=== PATIENT | male | born 1940 | race Caucasian/White ===

== ENCOUNTER → 2016-12-09 | Outpatient (CLI) | payer OTHER ==
[~2016-12-09] MED LIST: ALLO300T2 PO; ASPEC325 PO; CHOL100027 PO; DICL-201 PO; DICL1SOL6; LISI2.5T5 PO; OMEG10007 PO; ROSU5TAB PO; SITA50TA5 PO; ZNTT/150 PO; fiber PO
[2016-12-09 10:18] LABS: ALB/GLOB RATIO 1.1 (0.9-2); AST/SGOT 10 U/L (15-37); BLOOD UREA NITROGEN 21 mg/dl (7-18); BUN/CREATININE RATIO 17.7 (10-20); CALCIUM 9.3 mg/dl (8.5-10.1); CARBON DIOXIDE 30 mmol/L (21-32); CHLORIDE 101 mmol/L (98-107); GLUCOSE 271 mg/dl (70-99); POTASSIUM 4.4 mmol/L (3.5-5.1); SODIUM 140 mmol/L (136-145)
[2016-12-09 10:23] LABS: ALKALINE PHOSPHATASE 69 U/L (45-117); ALT/SGPT 29 U/L (12-78)
[2016-12-09 10:24] LABS: ESTIMATED AVERAGE GLUCOSE 220 mg/dl; HA1C FLAG Normal (Normal)
[2016-12-09 11:54] LABS: RATIO 9.1 mcg/mg (0-30.0)
== END | disposition home or self-care (01) ==
LOC: C.LAB 08:50
PROVIDERS: ATTEND Internal Medicine
DX: E11.65 Type 2 diabetes mellitus with hyperglycemia (principal); C61 Malignant neoplasm of prostate; I10 Essential (primary) hypertension

== ENCOUNTER → 2017-01-22 | Outpatient (CLI) | payer OTHER | END | disposition home or self-care (01) | LOC: C.LAB 17:21 | PROVIDERS: ATTEND Urology | DX: C61 Malignant neoplasm of prostate (principal) ==

== ENCOUNTER → 2017-03-07 | Outpatient (CLI) | payer OTHER ==
[~2017-03-07] MED LIST changes: +CALC625T13 PO; -DICL1SOL6; +DICL1SOL6 TOP; +LISI-729 PO; +ONDA4TAB10 SL
[2017-03-07 12:51] LABS: ESTIMATED AVERAGE GLUCOSE 183 mg/dl; HA1C FLAG Normal (Normal)
== END | disposition home or self-care (01) ==
LOC: C.LAB 09:52
PROVIDERS: ATTEND Internal Medicine
DX: E11.65 Type 2 diabetes mellitus with hyperglycemia (principal)

== ENCOUNTER → 2017-07-15 | Outpatient (CLI) | payer OTHER ==
[~2017-07-15] MED LIST changes: -CALC625T13 PO; +DICL1SOL6; -DICL1SOL6 TOP; -LISI-729 PO; -ONDA4TAB10 SL
[2017-07-15 10:24] LABS: ESTIMATED AVERAGE GLUCOSE 171 mg/dl; HA1C FLAG Normal (Normal)
[2017-07-15 13:27] LABS: ALT/SGPT 31 U/L (12-78); AST/SGOT 16 U/L (15-37); BLOOD UREA NITROGEN 16 mg/dl (7-18); BUN/CREATININE RATIO 16.7 (10-20); CALCIUM 9.3 mg/dl (8.5-10.1); CARBON DIOXIDE 28 mmol/L (21-32); CHLORIDE 105 mmol/L (98-107); CREATININE 0.97 mg/dl (0.60-1.40); GLUCOSE 161 mg/dl (70-99); POTASSIUM 4.3 mmol/L (3.5-5.1); SODIUM 139 mmol/L (136-145); URIC ACID 3.2 mg/dl (2.6-7.2)
[2017-07-15 13:30] LABS: ALB/GLOB RATIO 1.1 (0.9-2); ALKALINE PHOSPHATASE 68 U/L (45-117); CHOLESTEROL 154 mg/dl (0-200); CHOLESTEROL/HDL RATIO 4.3; HDL CHOLESTEROL 36 mg/dl; LDL CHOLESTEROL CALCULATED 71 mg/dl; TRIGLYCERIDES 235 mg/dl (0-150); VERY LOW DENSITY LIPOPROT CALC 47 mg/dl
== END | disposition home or self-care (01) ==
LOC: C.LAB 09:22
PROVIDERS: ATTEND Internal Medicine
DX: E78.5 Hyperlipidemia, unspecified (principal); E11.65 Type 2 diabetes mellitus with hyperglycemia; E79.0 Hyperuricemia without signs of inflammatory arthritis and tophaceous disease; I10 Essential (primary) hypertension

== ENCOUNTER → 2017-07-28 | Outpatient (CLI) | payer OTHER | END | disposition home or self-care (01) | LOC: C.LAB 11:55 | PROVIDERS: ATTEND Internal Medicine | DX: C61 Malignant neoplasm of prostate (principal) ==

== ENCOUNTER 2017-08-31 19:24 | Emergency (ER) | payer OTHER ==
[~2017-08-31] VITALS: Ht 177.8 cm; Wt 87.3 kg
[~2017-08-31 19:24] MED LIST changes: -DICL1SOL6; +DICL1SOL6 TOP
[2017-08-31 19:41] VITALS: TEMP 36.9; Ht 177.8 cm; Wt 87.3 kg
[2017-08-31] MEDS ORDERED: ONDANSETRON INJ 2 MG/ML 2 ML VIAL IV STA (20:42)
[2017-08-31] MEDS ORDERED: SODIUM CHLORIDE 0.9% 1000ML 1,000 ML IV STA (20:42)
--- NOTE | 2017-08-31 20:47 | EMERGENCY ROOM VISIT NOTE ---
History Report prepared by Richardson: Ale Echevarria Under the Supervision of: Dr. David Davidson M.D. First contact with patient: 20:20 Chief Complaint: VOMITING Stated Complaint: NAUSEA, VOMITING Nursing Triage Summary: vomiting and nausea x 2 hrs. History of Present Illness The patient is a 76 year old male who presents to the Emergency Room with complaints of constant nausea and vomiting beginning 2 hours ago. He denies any fever, chills, or abdominal pain. The patient has had about 6 episodes of vomiting today. The patient notes taking an amoxicillin that he had "laying around" at 4 pm prior to a dental procedure. He states that he had a hip replacement a year ago and was told to by his orthopedic surgeon to take an amoxicillin before he had any dental procedures. The patient has a history of appendectomy and diabetes. Source of History: patient Onset: 2 hours ago Position: other (generalized) Quality: other (nausea) Associated Symptoms: + nausea, + vomiting, No fevers, No chills, No abdominal pain Review of Systems See HPI for pertinent positives and negatives. A total of ten systems were reviewed and were otherwise negative. Past Medical & Surgical Medical Problems: (1) Diabetes (2) Left Hip DJD Family History Diabetes mellitus Kidney disease Kidney stones Social History Smoking Status: Never Smoker Alcohol Use: none Marital Status: Housing Status: lives with family Occupation Status: employed Current/Historical Medications Scheduled Allopurinol (Zyloprim), 300 MG PO QAM Calcium Polycarbophil (Fiber Tabs), 625 MG PO BID Cholecalciferol (Vitamin D 1000 Unit), 1,000 INTER.UNIT PO BID Diclofenac (Voltaren), 75 MG PO DAILY Lisinopril (Zestril), 2.5 MG PO DAILY Ondasetron Odt (Zofran Odt), 4 MG SL Q6H Ranitidine (Zantac), 150 MG PO HS Rosuvastatin Calcium (Crestor), 10 MG PO Q2D Sitagliptin-Metformin Hcl (Janumet), 1 TAB PO BID Scheduled PRN Diclofenac Sodium (Topical) (Pennsaid), 1 APPLN TOP BID PRN for Pain Allergies Coded Allergies: Iodine (Verified Allergy, Severe, ANAPHYLAXIS, 05/12/16) "Possible rxn" Shellfish (Verified Allergy, Severe, ANAPHYLAXIS, 05/12/16) Prednisone (Verified Adverse Reaction, Mild, raises blood sugar, 05/12/16) Insulin (Verified Adverse Reaction, Unknown, 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 Oropharynx unremarkable. Dry MM. EYES: Normal conjunctiva. Sclera non-icteric. NECK: Supple. No nuchal rigidity. FROM. No JVD. RESPIRATORY: Clear to auscultation. CARDIAC: Regular rate, normal rhythm. Extremities warm and well perfused. Pulses equal. ABDOMEN: Soft, non-distended. No tenderness to palpation. No rebound or guarding. No masses. RECTAL: Deferred. MUSCULOSKELETAL: Chest examination reveals no tenderness. The back is symmetrical on inspection without obvious abnormality. There is no CVA tenderness to palpation. No joint edema. LOWER EXTREMITIES: Calves are equal size bilaterally and non-tender. No edema. No discoloration. NEURO: Normal sensorium. No sensory or motor deficits noted. SKIN: No rash or jaundice noted. Medical Decision & Procedures ER Provider Diagnostic Interpretation: Radiology results as stated below per my review and radiologist interpretation: CHEST ONE VIEW PORTABLE FINDINGS: The heart is normal in size. There is no failure. There is no focal pulmonary consolidation. There are no pleural effusions. There is a retrocardiac opacity consistent with a hiatal hernia. There is no free intraperitoneal air.[ IMPRESSION: No active disease in the chest. Electronically signed by: Broderick Wilder M.D. Laboratory Results 08/31/17 20:16 Red Blood Count 4.83, Mean Corpuscular Volume 95.7, Mean Corpuscular Hemoglobin 32.5, Mean Corpuscular Hemoglobin Concent 34.0, Mean Platelet Volume 11.1, Neutrophils (%) (Auto) 87.7, Lymphocytes (%) (Auto) 5.2, Monocytes (%) (Auto) 5.8, Eosinophils (%) (Auto) 0.5, Basophils (%) (Auto) 0.2, Neutrophils # (Auto) 11.03, Lymphocytes # (Auto) 0.65, Monocytes # (Auto) 0.73, Eosinophils # (Auto) 0.06, Basophils # (Auto) 0.02 08/31/17 20:16 Test 08/31/17 20:16 White Blood Count 12.57 K/uL (4.8-10.8) Red Blood Count 4.83 M/uL (4.7-6.1) Hemoglobin 15.7 g/dL (14.0-18.0) Hematocrit 46.2 % (42-52) Mean Corpuscular Volume 95.7 fL (80-100) Mean Corpuscular Hemoglobin 32.5 pg (25-34) Mean Corpuscular Hemoglobin Concent 34.0 g/dl (32-36) Platelet Count 187 K/uL (130-400) Mean Platelet Volume 11.1 fL (7.4-10.4) Neutrophils (%) (Auto) 87.7 % Lymphocytes (%) (Auto) 5.2 % Monocytes (%) (Auto) 5.8 % Eosinophils (%) (Auto) 0.5 % Basophils (%) (Auto) 0.2 % Neutrophils # (Auto) 11.03 K/uL (1.4-6.5) Lymphocytes # (Auto) 0.65 K/uL (1.2-3.4) Monocytes # (Auto) 0.73 K/uL (0.11-0.59) Eosinophils # (Auto) 0.06 K/uL (0-0.5) Basophils # (Auto) 0.02 K/uL (0-0.2) RDW Standard Deviation 44.8 fL (36.4-46.3) RDW Coefficient of Variation 12.8 % (11.5-14.5) Immature Granulocyte % (Auto) 0.6 % Immature Granulocyte # (Auto) 0.08 K/uL (0.00-0.02) Anion Gap 10.0 mmol/L (3-11) Est Creatinine Clear Calc Drug Dose 63.4 ml/min Estimated GFR () 81.0 Estimated GFR (Non- 69.9 BUN/Creatinine Ratio 19.7 (10-20) Calcium Level 9.3 mg/dl (8.5-10.1) Total Bilirubin 0.5 mg/dl (0.2-1) Direct Bilirubin 0.1 mg/dl (0-0.2) Aspartate Amino Transf (AST/SGOT) 16 U/L (15-37) Alanine Aminotransferase (ALT/SGPT) 30 U/L (12-78) Alkaline Phosphatase 79 U/L (45-117) Troponin I < 0.015 ng/ml (0-0.045) Total Protein 7.4 gm/dl (6.4-8.2) Albumin 4.0 gm/dl (3.4-5.0) Lipase 411 U/L (73-393) Laboratory results reviewed by me Medications Administered Medications (Trade) Dose Ordered Sig/Yun Route Start Time Stop Time Status Last Admin Dose Admin Sodium Chloride 1,000 ml @ 999 mls/hr Q1H1M STAT IV 08/31/17 20:42 08/31/17 21:42 DC 08/31/17 20:54 999 MLS/HR Ondansetron HCl (Zofran Inj) 4 mg NOW STAT IV 08/31/17 20:42 08/31/17 20:44 DC 08/31/17 20:54 4 MG Ondansetron HCl (ZOFRAN ODT 4MG Home Pack) 1 homepack STK-MED ONCE .ROUTE 08/31/17 21:51 08/31/17 21:52 DC 08/31/17 21:57 1 HOMEPACK ECG Indication: nausea Rate (beats per minute): 88 Rhythm: normal sinus Findings: RBBB (incomplete), no acute ischemic change, other (normal axis) Comparison ECG Date: 04/04/16 Change: no significant change ED Course 2036: The patient was evaluated in room C12B. A complete history and physical exam was performed. 2041: Zofran Inj 4 mg IV, Sodium Chloride 1000 ml @ 999 mls/hr IV. 2129: I reassessed the patient and he states that he is feeling better. 2150: Zofran ODT 4 mg Homepack 1 homepack .ROUTE. 2154: I reevaluated the patient. Discussed results and discharge instructions: He verbalized understanding and agreement. The patient is ready for discharge. Medical Decision I reviewed the patient's past medical history, medications, and the nursing notes as described above. Differential diagnoses: gastritis, gastroenteritis, ACS, pneumonia, bronchitis, dissection. The patient is a 76-year-old gentleman who presents emergency Department with nausea and vomiting that started around 5 PM prior to arrival. History of present illness. While the patient is relatively well-appearing in no acute distress, afebrile with stable vital signs. He did not shortly after arrival that he had to have a bowel movement and had a small episode of diarrhea. Symptoms occurred in the setting of taking independently a dose of Augmentin for a dental cleaning tomorrow in the setting of his left hip replacement. Labs unremarkable including a negative troponin. X-ray negative. EKG with incomplete right bundle-branch block not significantly changed from prior and with no signs of acute ischemia. Given the combination of nausea and vomiting with diarrhea, ACS is unlikely and gastroenteritis is more likely. Denies CP or abd pain and equal pulses thus dissection not likely. Patient feeling improved after IV fluids and Zofran. Agreeable for discharge. Findings and plan for follow-up reviewed patient. Patient agreeable and d/c'd per discharge instructions. Medication Reconcilliation Current Medication List: was personally reviewed by me Blood Pressure Screening Patient's blood pressure: Elevated blood pressure Blood pressure disposition: Elevated BP felt to be situational Impression Primary Impression: Nausea, vomiting, and diarrhea Additional Impression: Gastroenteritis Scribe Attestation The scribe's documentation has been prepared under my direction and personally reviewed by me in its entirety. I confirm that the note above accurately reflects all work, treatment, procedures, and medical decision making performed by me. Departure Information Dispostion Home / Self-Care Prescriptions Ondasetron Odt (ZOFRAN ODT) 4 Mg Tab 4 MG SL Q6H for Nausea, #6 TAB Prov: David Davidson M.D. 08/31/17 Referrals Lilly Bonds M.D. (PCP) Forms HOME CARE DOCUMENTATION FORM, IMPORTANT VISIT INFORMATION Patient Instructions ED Food Poison Or Gastroenteritis, My [facility] Additional Instructions Please follow up with your primary care physician in the next 1-3 days for re- evaluation. Your symptoms may have been due to your antibiotic or a viral infection. Otherwise, your exam, EKG, chest xray, and lab results did not show signs of an emergent condition at this time. Zofran as needed for nausea. Drink plenty of fluids to ensure hydration. Return to the emergency department for worsening symptoms as described in the accompanying instructions. Problem Qualifiers
[2017-08-31 20:49] LABS: BASO % 0.2 %; BASO ABS # 0.02 K/uL (0-0.2); COMPLETE YES; EOS % 0.5 %; HEMATOCRIT 46.2 % (42-52); IG% 0.6 %; LYMPH % 5.2 %; LYMPH ABS # 0.65 K/uL (1.2-3.4); MEAN CELL VOLUME 95.7 fL (80-100); MEAN CORPUSCULAR HEMOGLOBIN 32.5 pg (25-34); MEAN PLATELET VOLUME 11.1 fL (7.4-10.4); MONO % 5.8 %; NEUT % 87.7 %; PLATELET COUNT 187 K/uL (130-400); RED BLOOD COUNT 4.83 M/uL (4.7-6.1); WHITE BLOOD COUNT 12.57 K/uL (4.8-10.8)
[2017-08-31 20:57] LABS: ALT/SGPT 30 U/L (12-78); AST/SGOT 16 U/L (15-37); BLOOD UREA NITROGEN 21 mg/dl (7-18); BUN/CREATININE RATIO 19.7 (10-20); CALCIUM 9.3 mg/dl (8.5-10.1); CARBON DIOXIDE 24 mmol/L (21-32); CHLORIDE 105 mmol/L (98-107); CREATININE 1.04 mg/dl (0.60-1.40); GLUCOSE 198 mg/dl (70-99); POTASSIUM 4.2 mmol/L (3.5-5.1); SODIUM 139 mmol/L (136-145)
[2017-08-31 21:02] LABS: ALKALINE PHOSPHATASE 79 U/L (45-117)
--- NOTE | 2017-08-31 21:04 | DIAGNOSTIC IMAGING REPORT ---
CHEST ONE VIEW PORTABLE CLINICAL HISTORY: Pain, radiating to the abdomen, nausea, vomiting. COMPARISON STUDY: 04/04/2016 FINDINGS: The heart is normal in size. There is no failure. There is no focal pulmonary consolidation. There are no pleural effusions. There is a retrocardiac opacity consistent with a hiatal hernia. There is no free intraperitoneal air.[ IMPRESSION: No active disease in the chest. Electronically signed by: Broderick Wilder M.D. 08/31/2017 9:02 PM Dictated Date/Time: 08/31/2017 9:02 PM
[2017-08-31 21:35] VITALS: BP 126/61; PULSE 90; O2SAT 96
[2017-08-31] MEDS ORDERED: ONDA4TAB10 SL (21:41)
[2017-08-31] MEDS ORDERED: ONDANSETRON HOME PACK 4MG OD TAB ONE (21:51)
[2017-08-31] MEDS ORDERED: LISI-729 PO (21:53)
[2017-08-31] MEDS ORDERED: CALC625T13 PO (21:53)
== END 2017-08-31 21:59 | disposition home or self-care (01) ==
LOC: C.EDB 19:24 → C.EDC 21:59
DX: R11.2 Nausea with vomiting, unspecified (principal); R19.7 Diarrhea, unspecified; K52.9 Noninfective gastroenteritis and colitis, unspecified; E11.9 Type 2 diabetes mellitus without complications; Z83.3 Family history of diabetes mellitus

== ENCOUNTER → 2017-11-24 | Outpatient (CLI) | payer OTHER ==
[~2017-11-24] MED LIST changes: -ASPEC325 PO; +CALC625T13 PO; +LISI-729 PO; -LISI2.5T5 PO; -OMEG10007 PO; +ONDA4TAB10 SL; -fiber PO
[2017-11-24 10:10] LABS: HEMOGLOBIN A1C 7.8 % (4.5-5.6)
[2017-11-24 10:37] LABS: ALBUMIN 3.9 gm/dl (3.4-5.0); ALKALINE PHOSPHATASE 84 U/L (45-117); ALT/SGPT 41 U/L (12-78); AST/SGOT 24 U/L (15-37); BLOOD UREA NITROGEN 19 mg/dl (7-18); CALCIUM 9.7 mg/dl (8.5-10.1); CARBON DIOXIDE 27 mmol/L (21-32); CHOLESTEROL 186 mg/dl (0-200); CREATININE 0.99 mg/dl (0.60-1.40); GLUCOSE 164 mg/dl (70-99); POTASSIUM 4.3 mmol/L (3.5-5.1); SODIUM 136 mmol/L (136-145); TOTAL PROTEIN 7.3 gm/dl (6.4-8.2)
== END | disposition home or self-care (01) ==
LOC: C.LAB 08:57
PROVIDERS: ATTEND Internal Medicine
DX: E11.9 Type 2 diabetes mellitus without complications (principal); I10 Essential (primary) hypertension; E78.5 Hyperlipidemia, unspecified

== ENCOUNTER 2017-12-08 21:26 | Emergency (ER) | payer OTHER ==
[~2017-12-08] VITALS: Ht 177.8 cm; Wt 86.4 kg
[2017-12-08 21:42] VITALS: Ht 177.8 cm; Wt 86.4 kg
[2017-12-08] MEDS ORDERED: ACETAMINOPHEN 500 MG TAB PO STA (22:06)
[2017-12-08 22:55] LABS: INFLUENZA B ANTIGEN Neg for Influ B (NEG)
[2017-12-08] MEDS ORDERED: OSELTAMIVIR PHOSPHATE 75 MG CAP PO STA (23:20)
[2017-12-08] MEDS ORDERED: ALBUTEROL HFA 8 GM INHALER INH ONE (23:30)
[2017-12-09] MEDS ORDERED: ASPI81TA28 PO (00:30)
[2017-12-09] MEDS ORDERED: OSEL75CA12 PO (00:43)
[2017-12-09 01:11] VITALS: BP 129/70; PULSE 78; TEMP 37.3; O2SAT 93
--- NOTE | 2017-12-09 03:52 | EMERGENCY ROOM VISIT NOTE ---
History Report prepared by Richardson: Mingo Ernst Under the Supervision of: Dr. Cale Connors M.D. First contact with patient: 22:38 Chief Complaint: FEVER Stated Complaint: EXTREME FATIGUE,FEVER,SINUS History of Present Illness The patient is a 77 year old male who presents to the Emergency Room with complaints of a constant fever that began today. The patient states that he started to develop cold symptoms, including sinus drainage, fatigue, and sneezing. He states that today he started to experience a fever today. He states that he has been urinating more frequently because he has been pushing fluids. The patient reports that he took 200 mg of Ibuprofen this morning for his symptoms without any relief. He states that he had "nearly collapsed" today after getting out of his unpressurized cabin after flying from [place] to [place] today. The patient states that he had to fly higher than normal today. He states that he was not dizzy or lightheaded prior to falling. The patient denies any syncope or hitting his head. The patient denies LOC, headache , diaphoresis, visual changes, neck pain, chest pain, breathing difficulties, nausea, vomiting, abdominal pain, back pain, melena, hematochezia, numbness, weakness, lymphadenopathy, rash, or other complaints. Source of History: patient Onset: today Position: other (global) Quality: other (global) Timing: constant Modifying Factors (Relieving): ibuprofen Associated Symptoms: + urinary symptoms, + fatigue Review of Systems See HPI for pertinent positives and negatives. A total of ten systems were reviewed and were otherwise negative. Past Medical & Surgical Medical Problems: (1) Diabetes (2) Left Hip DJD Family History Diabetes mellitus Kidney disease Kidney stones Social History Smoking Status: Never Smoker Alcohol Use: none Marital Status: Housing Status: lives with family Occupation Status: employed Current/Historical Medications Scheduled Allopurinol (Zyloprim), 300 MG PO QAM Aspirin (Aspirin Ec), 81 MG PO DAILY Calcium Polycarbophil (Fiber Tabs), 625 MG PO BID Cholecalciferol (Vitamin D 1000 Unit), 1,000 INTER.UNIT PO BID Diclofenac (Voltaren), 75 MG PO DAILY Lisinopril (Zestril), 2.5 MG PO DAILY Oseltamivir (Tamiflu), 75 MG PO BID Ranitidine (Zantac), 150 MG PO HS Rosuvastatin Calcium (Crestor), 10 MG PO Q2D Sitagliptin-Metformin Hcl (Janumet), 1 TAB PO BID Scheduled PRN Diclofenac Sodium (Topical) (Pennsaid), 1 APPLN TOP BID PRN for Pain Allergies Coded Allergies: Iodine (Verified Allergy, Severe, ANAPHYLAXIS, 12/09/17) "Possible rxn" Shellfish (Verified Allergy, Severe, ANAPHYLAXIS, 12/09/17) Prednisone (Verified Adverse Reaction, Mild, raises blood sugar, 12/09/17) Insulin (Verified Adverse Reaction, Unknown, 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 No edema. EYES: Normal conjunctiva. Sclera non-icteric. EARS: Right TM normal. Left TM normal. NOSE: Mild congestion. OROPHARYNX: Lips, tongue, and mucosa unremarkable. No erythema or exudate. NECK: Supple. No nuchal rigidity. FROM. No adenopathy. Negative jolt accentuation test. RESPIRATORY: CTA bilaterally. No wheezes rales or rhonchi. CARDIAC: Borderline tachycardic rate, normal rhythm. ABDOMEN: Soft, non distended. No tenderness to palpation. NEURO: Normal sensorium. SKIN: No rash or jaundice noted Medical Decision & Procedures ER Provider Diagnostic Interpretation: X-ray: Per my interpretation and review. Chest x-ray. Findings: A chest x-ray was performed and revealed no pneumothorax , effusion, infiltrate, pulmonary edema, free air under the diaphragm, or wide mediastinum. Laboratory Results Test 12/08/17 21:45 12/08/17 22:10 Bedside Glucose 249 mg/dl (70-99) Influenza Type A Antigen POS for Influ A (NEG) Influenza Type B Antigen Neg for Influ B (NEG) Laboratory results reviewed by me Medications Administered Medications (Trade) Dose Ordered Sig/Yun Route Start Time Stop Time Status Last Admin Dose Admin Acetaminophen (Tylenol Tab) 1,000 mg NOW STAT PO 12/08/17 22:06 12/08/17 22:08 DC 12/08/17 22:12 1,000 MG Oseltamivir Phosphate (Tamiflu Cap) 75 mg NOW STAT PO 12/08/17 23:20 12/08/17 23:21 DC 12/08/17 23:39 75 MG Albuterol (Ventolin Hfa Inhaler) 2 puffs NOW ONCE INH 12/08/17 23:30 12/08/17 23:31 DC 12/08/17 23:30 2 PUFFS ED Course 2311: The patient was evaluated in room C10. A complete history and physical exam was performed. 2205: Ordered Tylenol Tab 1000 mg PO. 0: Ordered Tamiflu Cap 75 mg PO. 2330: Ordered Albuterol 2 puffs INH. 0048: I reevaluated the patient. Discussed results and discharge instructions: He verbalized understanding and agreement. The patient is ready for discharge. Medical Decision Prior records/ancillary studies reviewed. Triage Nursing notes reviewed and agree them. Additional history obtained from his . The patient's history was concerning for flulike symptoms. Differential diagnosis: Etiologies such as influenza,otitis, sinusitis, pneumonia,meningitis, urinary tract infection, sepsis, bacteremia, viral syndrome, as well as others were entertained. Physical examination: As above. Non-toxic. No hypoxia. Benign abdomen. Clear chest. ER treatment provided: Oral Tylenol Tamiflu Albuterol MDI On reassessment the patient felt better. Diagnostics interpreted by me: The labs revealed a positive flu. Imaging studies: Chest x-ray as above The patient has influenza. This would fit his symptom pathology. I discussed treatment with Tamiflu as his symptoms and present for just a short time. He was in agreement. Conservative management with an albuterol MDI, Tylenol, and sparing doses of ibuprofen were instructed. Close outpatient follow-up was recommended. If he worsens in any way he was instructed to come back. I did instruct his to contact her primary physician regarding her exposure to influenza. By the evaluation outlined above emergent etiologies such as otitis, pharyngitis, pneumonia, meningitis, urinary tract infection, sepsis, bacteremia , as well as others were deemed relatively unlikely. The patient and were informed about the findings as listed above. All questions were answered and they were pleased with the treatment. Return instructions were outlined and the patient was discharged in stable condition. Outpatient prescription management: Tamiflu Albuterol MDI Referral: The patient was referred back to his primary care physician for follow-up in 2 to 3 days for a recheck of the current condition. Medication Reconcilliation Current Medication List: was personally reviewed by me Blood Pressure Screening Patient's blood pressure: Normal blood pressure Impression Primary Impression: Influenza Scribe Attestation The scribe's documentation has been prepared under my direction and personally reviewed by me in its entirety. I confirm that the note above accurately reflects all work, treatment, procedures, and medical decision making performed by me. Departure Information Dispostion Home / Self-Care Prescriptions Oseltamivir (Tamiflu) 75 Mg Cap 75 MG PO BID, #9 CAP Prov: Cale Connors MD 12/09/17 Referrals Lilly Bonds M.D. (PCP) Doron Stephen D.OMarcia Patient Instructions My [facility] Additional Instructions Tamiflu 75 mg twice daily for 10 doses total for the flu. Acetaminophen(Tylenol) may be used for fever or pain. Use 1000mg every six hours as needed. Avoid using more than 4000mg in a 24 hour period. (AND/OR) Ibuprofen(Motrin, Advil) may be used for fever or pain. Use 600mg every six hours as needed. Take with food. Avoid using more than 2400mg in a 24 hour period. Do not use 2400mg per day for more than three consecutive days without physician direction. Prolonged inappropriate use can lead to stomach upset or ulcers. Albuterol Inhaler: Take 2 puffs four times daily for seven days, then as needed. Rest and drink plenty of fluids. Controlling your fever with Tylenol and Ibuprofen as above will make you feel better. Wash your hands after nose blowing, sneezing, or coughing. Most germs are spread through contact, therefore improper hygiene may result in your close contacts and loved ones becoming ill just like you. Return to the ER for severe headache, neck stiffness, chest pain, difficulty breathing, fevers, vomiting, worsening of your condition, or as needed. Follow up with your primary physician this week for a recheck of your current condition.
--- NOTE | 2017-12-09 07:17 | DIAGNOSTIC IMAGING REPORT ---
CHEST ONE VIEW PORTABLE CLINICAL HISTORY: 77 years-old Male presenting with flu. TECHNIQUE: Portable upright AP view of the chest was obtained. COMPARISON: 08/31/2017. FINDINGS: Atherosclerosis of the aortic arch. Cardiac silhouette normal in size. Lungs and pleural spaces clear. Degenerative changes of the thoracic spine. Retrocardiac density may relate to a hiatal hernia. IMPRESSION: 1. No acute cardiopulmonary disease. Electronically signed by: Nirmal Sierra M.D. 12/09/2017 7:16 AM Dictated Date/Time: 12/09/2017 7:15 AM
== END 2017-12-09 01:14 | disposition home or self-care (01) ==
LOC: C.EDB 21:27 → C.EDC 12-09 01:14
DX: J11.1 Influenza due to unidentified influenza virus with other respiratory manifestations (principal); E11.9 Type 2 diabetes mellitus without complications; M16.12 Unilateral primary osteoarthritis, left hip; Z83.3 Family history of diabetes mellitus; Z84.1 Family history of disorders of kidney and ureter; Z79.82 Long term (current) use of aspirin; Z79.899 Other long term (current) drug therapy

== ENCOUNTER → 2018-02-16 | Outpatient (CLI) | payer OTHER ==
[~2018-02-16] MED LIST changes: +ASPI81TA28 PO; -ONDA4TAB10 SL; +OSEL75CA12 PO; +RANI150T85 PO; -ZNTT/150 PO
== END | disposition home or self-care (01) ==
LOC: C.LAB 10:27
PROVIDERS: ATTEND Urology
DX: C61 Malignant neoplasm of prostate (principal)

== ENCOUNTER → 2018-06-22 | Outpatient (CLI) | payer OTHER ==
[~2018-06-22] MED LIST changes: -OSEL75CA12 PO
--- NOTE | 2018-06-22 18:43 | DIAGNOSTIC IMAGING REPORT ---
L HIP UNILATERAL 2 VIEWS CLINICAL HISTORY: Left hip pain. No trauma. COMPARISON: Left hip radiographs February 01, 2016 and May 07, 2016. FINDINGS: Alignment of the total left hip arthroplasty is anatomic. There is no periprosthetic fracture or lucency. No suspicious osseous lesion is present. IMPRESSION: Status post total left hip arthroplasty. No periprosthetic fracture or lucency. Electronically signed by: Shree Schulte M.D. 06/22/2018 6:42 PM Dictated Date/Time: 06/22/2018 6:36 PM
== END | disposition home or self-care (01) ==
LOC: C.RAD 18:21
PROVIDERS: ATTEND Internal Medicine
DX: M25.552 Pain in left hip (principal); Z96.642 Presence of left artificial hip joint

== ENCOUNTER 2021-09-19 06:39 | Observation (INO) ==
--- NOTE | 2021-06-14 14:04 | PAT Medication Instructions ---
Medication Instructions Date of Service June 14, 2021 Home Medications allopurinol 300 mg tablet 300 mg PO QAM cholecalciferol (vitamin D3) 50 mcg (2,000 unit) tablet 2,000 mcg PO QAM diclofenac sodium 75 mg tablet,delayed release 75 mg PO BID rosuvastatin 5 mg tablet 20 mg PO 3XWK sitagliptin 50 mg-metformin ER 1,000 mg tablet,extended release 24h mp 1 tab PO BID poby-pht-epeve-wxhcrysne-aojlrvwx-rulo-pectin 1,000 mg tablet (Fiber 6) 1 tab PO BID diclofenac sodium 1 % topical gel 2 g TOPICAL BID lisinopril 2.5 mg tablet 2.5 mg PO 3XWK pioglitazone 45 mg tablet 45 mg PO QAM Continue as directed rosuvastatin 5 mg tablet 20 mg PO 3XWK ASK your surgeon for instructions diclofenac sodium 75 mg tablet,delayed release 75 mg PO BID STOP taking 24 hours before surgery diclofenac sodium 1 % topical gel 2 g TOPICAL BID DO NOT take the morning of surgery cholecalciferol (vitamin D3) 50 mcg (2,000 unit) tablet 2,000 mcg PO QAM sitagliptin 50 mg-metformin ER 1,000 mg tablet,extended release 24h mp 1 tab PO BID tcgc-brh-jjyam-psftospny-xfsvmvhy-yugp-pectin 1,000 mg tablet (Fiber 6) 1 tab PO BID lisinopril 2.5 mg tablet 2.5 mg PO 3XWK pioglitazone 45 mg tablet 45 mg PO QAM Take morning of surgery With a small sip of water, OTHERWISE NOTHING TO EAT OR DRINK AFTER MIDNIGHT: allopurinol 300 mg tablet 300 mg PO QAM Take evening before surgery sitagliptin 50 mg-metformin ER 1,000 mg tablet,extended release 24h mp 1 tab PO BID tdwc-iwh-ndoyz-emeiihzge-gtapzpdp-vugi-pectin 1,000 mg tablet (Fiber 6) 1 tab PO BID Other Notes If you have any questions please call us at [phone] or [phone] or [phone] or [phone]
--- NOTE | 2021-06-15 08:50 | Anesthesiology Consultation ---
Date of Service June 15, 2021 Assessment & Plan (1) Encounter for pre-operative examination: - COVID screening: Per assessment on 06/15: Travel screen- Patient will be doing daytrip to [facility] for 's doctor appt via car 06/19. Return from travel will be > 5 days prior to preop COVID testing. Patient vaccinated. No known COVID-19 positive contacts or current COVID-19 related symptoms. Surgeon arranging preop COVID testing (scheduled 06/28; [place]). Awaiting results. - S/P Left RYAN (05/07/16): SAB x1 attempt at [facility] - Check BSG AM DOS - Elevated hgba1c at 9.8% on preop labs. 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 Katharine at surgeon's office reviewed with Dr. Coburn. She states they will be forwarding results to PCP and arranging preop PCP evaluation. Chart Review Chart Review: Acceptable Risk for Surgery (pending surgeon-ordered PCP clear ance) and Patient seen in Pre Admission Testing Teaching & Discussion Pre-Anesthesia Teaching/Discussion Notes: Instructed NPO after midnight before surgery,except medications with 15 cc of water. Medication instructions provided according to the PAT guidelines. History Surgery Operation Date: 07/02/21 09:10 Proposed Procedures p Right Total Hip Arthroplasty - Romain Coburn MD Height/Weight Height: 5 ft 10 in Weight: 94.9 kg Allergies Allergy/AdvReac Type Severity Reaction Status Date / Time iodine Allergy Severe Anaphylaxis Verified 06/14/21 10:19 shellfish derived Allergy Severe Anaphylaxis Verified 06/14/21 10:19 prednisone AdvReac Mild Elevates Verified 06/14/21 10:19 blood sugar Insulins AdvReac Unknown Pt does Verified 06/14/21 10:19 not want (would revoke [employer]er [employer]'s license) Medications Home Medications Medication Instructions Recorded Confirmed Last Taken allopurinol 300 mg tablet 300 mg PO QAM 09/19/20 06/14/21 Unknown cholecalciferol (vitamin D3) 50 2,000 mcg PO QAM 09/19/20 06/14/21 Unknown mcg (2,000 unit) tablet diclofenac sodium 75 mg 75 mg PO BID 09/19/20 06/14/21 Unknown tablet,delayed release rosuvastatin 5 mg tablet 20 mg PO 3XWK 09/19/20 06/14/21 Unknown sitagliptin 50 mg-metformin ER 1 tab PO BID 09/19/20 06/14/21 Unknown 1,000 mg tablet,extended release 24h mp sdfw-vot-zvdde-klrdbosvm-jllertag-zosz-pectin 1 tab PO BID 06/14/21 06/14/21 Unknown 1,000 mg tablet (Fiber 6) diclofenac sodium 1 % topical gel 2 g TOPICAL BID 06/14/21 06/14/21 Unknown lisinopril 2.5 mg tablet 2.5 mg PO 3XWK 06/14/21 06/14/21 Unknown pioglitazone 45 mg tablet 45 mg PO QAM 06/14/21 06/14/21 Unknown Past Medical History Medical History Arthritis Cancer Urethral (several years ago) Diabetes Hyperlipidemia Prostate cancer Under surveillance (Dr. Christian) Exercise / Class Metabolic Activity II 4-5 Yardwork/Stairs/Walk up hill (one FS (no CP, no SOB)) Past Family History Family History Father Diabetes Renal failure Past Surgical History Surgical History History of colonoscopy History of esophagogastroduodenoscopy (EGD) History of eye surgery R/L cataracts History of left hip replacement Left RYAN (05/07/16): SAB x1 attempt at [facility] History of open reduction and internal fixation (ORIF) procedure LLE (1975) History of prostate surgery Biopsy Hx of appendectomy Hx of tonsillectomy Past Anesthesia History No Hx of Anesthesia Complications and No Family Hx of Anesthesia Complications History of PONV No Hx of PONV and No Hx of Motion Sickness Social History Smoking Status: Former smoker Do You Dip or Chew Tobacco: No Smoking End Date: Quit 1995 Hx Alcohol Use: Yes Alcohol type: beer, wine and hard liquor alcohol intake frequency: holidays/special occasions only Hx Substance Use: No Review of Systems Patient denies chest pain, shortness of breath, dyspnea on exertion, fever, chills, cough, wheezing, palpitations. Physical Exam Vital Signs VITALS BP 146/79 P 74 TEMP 98.4 SP02 95%RA RESP 16 PHYSICAL Full cervical extension range of motion. Full TMJ range of motion. TMD 3.5 finger breaths Mallampati Score 2 Dentition: missing molars, + implants (sides) Lungs: clear throughout to auscultation Cardiac: regular rate and rhythm, no murmurs noted Spine: normal Carotid arteries: negative bruit Extremities: no edema Lab Results Anesthesia Preop Results Results Anesthesia Widget: WBC 4.70 K/uL (4.8-10.8) L 06/15/21 Hgb 14.3 g/dL (14.0-18.0) 06/15/21 Hct 43.0 % (42-52) 06/15/21 Plt 188 K/uL (130-400) 06/15/21 Na 137 mmol/L (136-145) 06/15/21 K 4.8 mmol/L (3.5-5.1) 06/15/21 Cl 103 mmol/L (98-107) 06/15/21 CO2 31 mmol/L (21-32) 06/15/21 BUN 19 mg/dl (7-18) H 06/15/21 Creat 0.97 mg/dl (0.6-1.4) 06/15/21 Glucose Level 280 mg/dl (70-99) H 06/15/21 PT 9.8 Seconds (9.0-12.0) 06/15/21 PTT 25.0 Seconds (21.0-31.0) 06/15/21 INR 1.0 (0.9-1.1) 06/15/21 HA1c 9.8 % (4.5-5.6) H 06/15/21 Blood Type O Positive 06/15/21 Antibody Screen NEGATIVE 06/15/21 Lab Comments: 04/24/21 UA negative Low WBC and elevated hgba1c > results to be forwarded to PCP for continuity of care. 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 Results forwarded to PCP to address at their discretion). Testing Electrocardiogram Date: 06/15/21 NSR at 74bpm. iRBBB. NS TWA. Chest X-Ray Date: 06/15/21 FINDINGS: Lung volumes are normal. Lungs are clear. There is no pneumothorax or pleural effusion. Cardiac size is stable. Mediastinal contours are normal. There is no evidence for pulmonary edema. A hiatal hernia is noted. IMPRESSION: No acute cardiopulmonary findings. No change in appearance of the chest.
--- NOTE | 2021-09-17 20:02 | History and Physical Report ---
DATE OF ADMISSION: 09/19/2021. CHIEF COMPLAINT: Right hip pain and discomfort and stiffness. HISTORY OF PRESENT ILLNESS: The patient is a 80-year-old gentleman who is well known to me from prev ious left hip replacement done about 5 years ago. Over the past year, he has developed increased porifrio n and discomfort in his right hip. We treated him conservatively without adequate relief. Hip just gotten more painful and stiffer as time goes on. He has groin pain, thigh pain. He has difficulty p utting his shoes and socks on. He has actually been scheduled for his hip replacement on 2 separate occasions, but canceled due to the COVID epidemic. He would now like to proceed with hip replacement . He is very happy with the left hip. PAST MEDICAL HISTORY: 1. Elevated cholesterol. 2. Poorly controlled diabetes and has made an extensive strives trying to improve control. 3. Osteoarthritis. 4. Prostate cancer. PAST SURGICAL HISTORY: Includes: 1. Tonsillectomy. 2. Appendectomy. 3. TURP x3. 4. Left hip replacement done in 2016. ALLERGIES: IODINE, SHELLFISH. CURRENT MEDICATIONS: Include: 1. Allopurinol. 2. Vitamin D3. 3. Diclofenac. 4. Hydrocodone. 5. Lisinopril. 6. Rosuvastatin. 7. Trimethoprim. 8. Metformin. SOCIAL HISTORY: A 80-year-old male. He is . He does not smoke or drink. FAMILY HISTORY: Noncontributory. REVIEW OF SYSTEMS: Negative for any current chest pain or shortness of breath. No history of DVT or PE. He does have significant diabetes, which has been poorly controlled. He has made an extensive efforts to try and manage this. PHYSICAL EXAMINATION: GENERAL: He is a pleasant, healthy elderly male. He looks to be in reasonably good health. HEENT: Benign. NECK: Supple. No lymphadenopathy. LUNGS: Clear to auscultation. HEART: Has a regular rate and rhythm. ABDOMEN: Soft, nontender, nondistended. EXTREMITIES: Grossly neurovascularly intact except as follows. Examination of the right hip reveals the patient ambulates with a bit of a limp. Leg lengths appear pretty equal. He has stiffness and pain with hip motion. I can internally rotate to neutral. Negat rashawn straight leg raise. No knee effusion. He is neurologically intact. X-RAYS: X-rays of the right hip from previously reviewed. It shows moderate to advanced hip arthrit is. He has got concentric arthritic change with joint space loss, still a little bit of cartilage sp delano remaining. ASSESSMENT: A 80-year-old gentleman 5.5 years out from a left hip replacement with progressive arthr itic right hip disease. He has failed conservative treatment. It is affecting his quality of life a nd he would like to have his hip fixed. He has been scheduled multiple times, but canceled due to e COVID epidemic unfortunately. There was also an issue with his sodium, which has been corrected. PLAN: We are going to take him to the operating room and do a right total hip replacement. The risk s and benefits explained to the patient include but not limited to DVT, PE, , infection, neurolo gical injury, vascular injury, bleeding problem, pain, limited range of motion, stiffness, failure to relieve her symptoms, incomplete relief of symptoms, need for further surgery in the future, fractur e, leg length inequality, nerve palsy, dislocation, etc. The patient understands and desires to proc eed. Informed consent was obtained. As far as discharge plans, he is planning to be discharged to home using the Home Health program. Job ID: [id number]
[~2021-09-19 06:39] MED LIST changes: +ACETAMINOPHEN 500 MG TAB PO SCH; -ALLO300T2 PO; -ASPI81TA28 PO; +BUPIVACAINE 0.5 % 5 MG/1 ML PF 10ML VIAL ONE; -CALC625T13 PO; -CHOL100027 PO; -DICL-201 PO; -DICL1SOL6 TOP; +FAMOTIDINE 20 MG TAB PO SCH; +GABAPENTIN 300 MG CAP PO SCH; -LISI-729 PO; +LR 500ML BOLUS, THEN 15ML/HR IV SCH; +LR 60ML/HR IV SCH; +METOCLOPRAMIDE HCL 10 MG TABLET PO SCH; -RANI150T85 PO; -ROSU5TAB PO; -SITA50TA5 PO; +TRANEXAMIC ACID 1,000 MG **IV Pre-op IV SCH; +ceFAZolin 2000MG 2,000 MG/15 ML SYR IV SCH
--- NOTE | 2021-09-19 06:59 | History & Physical Bridge Note ---
Date of Service September 19, 2021 History & Physical Bridge Note I have examined the patient, reviewed the History & Physical and in the interval since the performance of the History & Physical I have noted the following changes of clinical significance: no changes noted
[2021-09-19] MEDS ORDERED: MIDAZOLAM HCL 1 MG/ML 2ML VIAL ONE (07:38)
[2021-09-19] MEDS ORDERED: ONDANSETRON INJ 2 MG/ML 2 ML VIAL ONE (07:39)
[2021-09-19] MEDS ORDERED: PROPOFOL IV EMULSION 10 MG/ML 20 ML VIAL IV ONE (07:39)
[2021-09-19] MEDS ORDERED: MoRPHine SULFATE PF 1 MG/ML 10 ML AMP/VIAL ONE (07:39)
[2021-09-19] MEDS ORDERED: ONDANSETRON INJ 2 MG/ML 2 ML VIAL IV PRN ×2 (08:19→09:24)
[2021-09-19] MEDS ORDERED: ePHEDrine sulfate 50 MG/ML AMP IV PRN ×2 (08:19→09:24)
[2021-09-19] MEDS ORDERED: fentaNYL citrate 100 MCG/2 ML VIAL IV PRN (08:19)
[2021-09-19] MEDS ORDERED: ATROPINE SULFATE 0.1 MG/ML 10ML SYR IV PRN (08:19)
[2021-09-19] MEDS ORDERED: BUPIVACAINE 0.5 % 5 MG/1 ML MPF 30ML VIAL ONE (09:15)
[2021-09-19] MEDS ORDERED: EPINEPHrine INJ 1 MG/ML AMP ONE (09:15)
[2021-09-19] MEDS ORDERED: diphenhydrAMINE 50 MG/ML VIAL IV PRN (09:24)
[2021-09-19] MEDS ORDERED: NALOXONE HCL 0.08 MG in SYRINGE 1.8 ML IV PRN (09:24)
[2021-09-19] MEDS ORDERED: NALBUPHINE HCL INJ 10 MG/ML AMP IV PRN (09:24)
[2021-09-19] MEDS ORDERED: LACTATED RINGER'S 500 ML IV PRN (09:24)
[2021-09-19] MEDS ORDERED: NALOXONE HCL 0.4 MG/1 ML VIAL/CARP IV PRN (09:24)
[2021-09-19] MEDS ORDERED: NALOXONE HCL 1 MG in SODIUM CHLORIDE 0.9% 1000ML 1,000 ML IV PRN (09:24)
[2021-09-19] MEDS ORDERED: MoRPHine SULFATE PF 1 MG/ML 10 ML AMP/VIAL INT SPINAL ONE (09:24)
[2021-09-19] MEDS ORDERED: NO NARCOTICS OR SEDATIVES SCH (09:30)
[2021-09-19] MEDS ORDERED: SODIUM CHLORIDE 0.9% 1000ML 1,000 ML IV SCH (09:30)
[2021-09-19] MEDS ORDERED: DC INTRASPINAL MORPHINE SCH (09:30)
--- NOTE | 2021-09-19 11:18 | Operative Report ---
Post Operative Report Pre & Post Diagnosis Operation Date: 08/06/21 10:50 <No data on this case meets the specified criteria> Operation Date: 09/19/21 09:05 Pre-Op Diagnosis: Right Hip Osteoarthritis Post-Op Diagnosis: Right Hip Osteoarthritis Operation Date: 10/03/21 07:15 <No data on this case meets the specified criteria> I identified the patient and participated in the time-out.: Yes Procedure Operation Date: 08/06/21 10:50 <No data on this case meets the specified criteria> Operation Date: 09/19/21 09:05 Actual Procedures p Right Total Hip Arthroplasty, Uncemented(Right) - Romain Coburn MD Operation Date: 10/03/21 07:15 <No data on this case meets the specified criteria> Surgeon Romain Coburn MD [employer] Reynaldo Adams PA-C Estimated Blood Loss 200 Findings Consistent with Post-Op Diagnosis Operative findings revealed moderate to advanced hip arthritis. He did have a significant joint effusion. He had the eburnation and full-thickness wear of the superior aspect of the femoral head as well as medial aspects. He had a small anterior acetabular osteophyte. Fluids 1000 cc Specimens Right femoral head sent for pathology Drains None Anesthesia Type Spinal Complications none Disposition Accompanied Patient To Recovery: Yes Indications Patient is a 80-year-old gentleman who is now 5 and half years out from a left hip replacement. Over the past year he developed increased pain discomfort in his right hip. He has been through extensive conservative treatment without adequate relief. X-rays show moderate to advanced hip arthritis. He elected proceed with surgical treatment. Patient's been canceled on several occasions due to the Covid epidemic and strongly desiring to proceed at this point. Description of Procedure Operative implants consist of: 1 Biomet G7 size 56 mm acetabular shell. 2. [place] hole exercise rider. 3. 6.5 cancellous acetabular screws 135 mm length 130 mm length. 4. Highly cross-linked polyethylene liner with a 56 mm diameter, 36 mm inner diameter and a lucas placed inferior and posterior. 5. [place] Karaya size 12 KLA femoral stem. 6. +5/36 mm ceramic articular ball. The patient was taken the operating, identified, placed on the operating table supine position but all contractors were properly padded. IV antibiotics tried by anesthesia team. Spinal anesthetic had been employed in the holding area. We did place a Ward catheter but did not get any return. Therefore we took this out and put another 1 and still did not get much return. The balloon inflated fairly easily so we decided to leave this in for the case assuming his bladder was just empty. The patient was then placed in the left lateral decubitus position. An axillary roll was placed. Stulberg hip positioner was used for positioning. The right hip and leg were then prepped and draped in usual sterile fashion. A posterior lateral approach of the right hip was then performed through a curvilinear incision centered over the greater trochanter. Sharp dissection was got through subcutaneous tissue down to the IT band gluteal fascia the IT band gluteal fascia incised longitudinally in line with skin incision. The underlyin g greater bursa was excised. The piriformis and external rotators were tagged and taken off the posterior aspect hip joint capsule. Great care was taken throughout the procedure protect the sciatic nerve at all times. Hip was internally rotated and dislocated. A femoral neck osteotomy cut was made with Final Cut about 12 mm above the lesser trochanter. Femoral head was removed and sent for pathology. The femur was retracted anteriorly. Attention drawn the acetabulum. The acetabular labrum was excised per the pulmonary fat was excised. Sequential reaming the acetabular stem forming was sized 47 and progressing up to 55. We did reamed a little bit of 56 reamer and then placed a 56 mm cup. I placed this in about 40 degrees lateral opening and 20 degrees of anteversion. Was fixed w ith two 6.5 cancellous acetabular screws. Some small anterior osteophytes were removed. Trial liner was placed. Attention drawn the femur. The proximal femur was entered with a cookie-cutter followed by canal finder. I then broached begin the size 8 and progressed up to a 12. Got very tight fit with a 12. We then trialed the hip. The +5 articular ball seem to recreate soft tissue tension and leg lengths equal. It was stable full extension and external rotation and flexion to 9 degrees and internal rotation about 50 degrees. I did elect to place a lucas inferior and posterior to maximize his stability in flexion. We elect to place these implants. Nupathe all trial implants were removed. An apex hole exercise rider was placed. Highly cross-linked polyethylene liner was placed. This lucas was placed inferior and posterior. AM 12 KLA femoral stem was impacted in position. +5/36 mm ceramic articular ball was placed. Hip was located once again found to be stable. Attention drawn toward closing. The wounds irrigated scope soft pulsatile lavage solution. I did inject locally with 60 cc of half percent Marcaine with epinephrine. The patient did receive 1 g tranexamic acid. The external rotators and posterior capsule were then repaired to the posterior aspect of the greater trochanter through drill holes with #2 Tycron suture. The IT band gluteal fascia then closed #1 PDS suture running fashion the subcutaneous tissue then closed in 2 layers of the deep layer #1 Vicryl suture subcutaneous tissue with 2 Dexon suture in a buried interrupted fashion the skin was closed skin angie. Leg was then cleaned and dried a sterile dressing was Xeroform 4, 4 x 4's, ABD pad, foam tape was applied. Patient was then placed back supine. The Ward catheter still had not put out any urine so we deflated the balloon and removed it. There was little blood that came out but but there was no other signs of any obvious problems. I elected just leave this out and I will see evaluate her bladder function returns postoperatively. The patient was then transferred to the recovery room in stable condition. Patient tolerated procedure well and there were no complications. Reynaldo Adams, my physician travel assistant, was present for the entire procedure. His assistance was essential and required for appropriate patient positioning, prepping and draping, surgical exposure, performing the technical details of the operation, placement the implants, closure of the wound, and placement of the sterile bandage. I attest to the content of the Intraoperative Record and any orders documented therein. Any exceptions are noted below.
--- NOTE | 2021-09-19 11:45 | Anesthesiology Progress Note ---
Date of Service September 19, 2021 Anesthesia Post Procedure Vital Signs Vital Signs: Temp Pulse Pulse Resp BP Pulse Ox 09/19/21 11:40 97.0 F L 64 12 120/70 99 09/19/21 11:30 73 12 134/59 L 94 09/19/21 11:20 76 15 118/72 97 09/19/21 11:10 79 18 132/71 96 09/19/21 11:04 97.0 F L 86 14 129/61 95 09/19/21 06:50 98.6 F 77 18 139/71 96 Transfer of Care Handoff Completed per policy Notes Mental Status: alert / awake / arousable and participated in evaluation Patient Amnestic to Procedure: Yes Nausea / Vomiting: adequately controlled Pain: adequately controlled Airway Patency, RR, SpO2: stable & adequate BP & HR: stable & adequate Hydration State: stable & adequate Neuraxial Anesthesia: was administered and sensory block is resolving Anesthetic Complications: no major complications apparent and Pt Satisfied with anesthetic care
--- NOTE | 2021-09-19 11:50 | XRay Report ---
XR hip 1V RT w pelvis CLINICAL HISTORY: IN PACU - A/P PELVIS and LATERAL HIP . COMPARISON STUDY: No current comparison studies are available. TECHNIQUE: 2 right hip views FINDINGS: The patient is status post total hip replacement. The prosthetic components are in anatomic alignment with no acute abnormality seen. Skin angie are seen from the recent procedure. IMPRESSION: Status post hip replacement ACT 112: Negative or not required by law. Electronically signed by: Hiram Armas M.D. 09/19/2021 11:49 AM
[2021-09-19] MEDS ORDERED: bisacodyL 10 MG SUPP PR PRN (12:50)
[2021-09-19] MEDS ORDERED: GLUCOSE 40% GEL 15 GM TUBE PO PRN ×2 (12:50→13:45)
[2021-09-19] MEDS ORDERED: ALUMINUM/MAGNESIUM SUSP 30 ML UDC PO PRN (12:50)
[2021-09-19] MEDS ORDERED: CARBOHYDRATES FOR HYPOGLYCEMIA PO PRN ×2 (12:50→13:45)
[2021-09-19] MEDS ORDERED: GLUCAGON FOR INJ 1 MG VIAL SQ PRN ×2 (12:50→13:45)
[2021-09-19] MEDS ORDERED: DEXTROSE 50% 50 ML SYRINGE IV PRN ×2 (12:50→13:45)
[2021-09-19] MEDS ORDERED: GLUCOSE 10 TABS/TUBE PO PRN ×2 (12:50→13:45)
[2021-09-19] MEDS ORDERED: NON-FORMULARY MEDICATION (Empagliflozin [Jardiance] 10 mg Tablet) PO SCH (12:50)
[2021-09-19] MEDS ORDERED: MAGNESIUM HYDROXIDE SUSP 30 ML UDC PO PRN (12:50)
[2021-09-19] MEDS ORDERED: PHARMACY GLYCEMIC MGMT CONSULT PRN (12:50)
[2021-09-19] MEDS ORDERED: lisinopril 2.5 MG TAB PO SCH (14:00)
--- NOTE | 2021-09-19 15:08 | Progress Notes ---
DATE OF SERVICE: 09/19/2021 SUBJECTIVE: A 80-year-old gentleman postoperative from a right hip replacement. He is doing well. Not really having any pain yet. No chest pain or shortness of breath. Not feeling dizzy or lighthea ded. He is just really waiting for a bed. OBJECTIVE: VITAL SIGNS: Temperature is 36.3. Vital signs are stable. PHYSICAL EXAMINATION: GENERAL: Shows a pleasant, elderly male. He is sitting up in bed and drinking and looks comfortable . LUNGS: Clear to auscultation. HEART: Has a regular rate and rhythm. ABDOMEN: Soft, nontender, nondistended. EXTREMITIES: Grossly neurovascularly intact except as follows: Examination of the right leg reveals his leg to be well aligned. Dressing is clean, dry and intact. Thigh is soft and supple. He can d orsiflex and plantarflex his foot appropriately. He is neurologically intact. X-RAYS: X-rays of the right hip from recovery room are reviewed. It shows right uncemented total hi p arthroplasty. Components looked to be in good position. No signs of problems. ASSESSMENT: A 80-year-old gentleman postoperative from right hip replacement, doing well. He is a f airly poorly controlled diabetic and we will place him on a sliding scale insulin coverage. His pain is controlled. Hip is located. PLAN: 1. DVT prophylaxis includes thigh-high TEDs, SCDs, and aspirin twice a day. 2. PT, OT, weightbear as tolerated. Right total hip protocol. 3. Pain control, doing okay with current pain regimen. 4. IV antibiotics x24 hours. 5. Diabetes: We will continue insulin sliding scale coverage and have the pharmacy assist in managi ng that. 6. Disposition: He is planning to be discharged to home with some home health likely tomorrow. Job ID: [id number]
[2021-09-19] MEDS: KETOROLAC TROMETHAMINE 15 MG/ML VIAL IV SCH ×2 (15:40→20:14)
[2021-09-19] MEDS ORDERED: INSULIN GLARGINE SOLOSTAR 100 UNITS/ML 3 ML PEN SC SCH (16:30)
[2021-09-19] MEDS ORDERED: TRANEXAMIC ACID / 0.7% NACL 1,000 MG/100 ML BAG IV SCH (17:15)
[2021-09-19] MEDS: TAMSULOSIN HCL 0.4 MG CAP PO SCH (17:47)
[2021-09-19] MEDS: ACETAMINOPHEN 500 MG TAB PO SCH ×2 (17:48→21:13)
[2021-09-19] MEDS: ASCORBIC ACID 500 MG TAB PO SCH (17:50)
[2021-09-19] MEDS: INSULIN ASPART 100 UNITS/ML 3 ML PEN SC SCH ×3 (17:55→21:27)
[2021-09-19] MEDS ORDERED: ROSUVASTATIN CALCIUM 20 MG TAB PO SCH (18:00)
[2021-09-19] MEDS: SODIUM CHLORIDE 0.9% 1000ML 1,000 ML IV SCH ×2 (19:21→20:40)
[2021-09-19] MEDS: ceFAZolin 2000MG 2,000 MG/15 ML SYR IV SCH (19:28)
--- NOTE | 2021-09-19 20:03 | Urology Consultation ---
Date of Consultation September 19, 2021 Assessment & Plan (1) Urinary retention: At this point, I suspect his urinary retention was lingering effects from anesthesia. There may have been a component of urethral irritation and edema after unsuccessful catheter placement. Bedside cystoscopy demonstrated a false passage, therefore he should maintain the catheter for approximately 1 week to let the urethra heal, prior to undergoing a voiding trial. Urology can coordinate this voiding trial in the office next week. 1maintain Ward catheter for 1 week 2monitor urine output 3urology will coordinate outpatient follow-up and voiding trial History of Present Illness Reason for Consultation: Urinary retention, inability to place Ward catheter. Attending Physician: Romain Coburn MD History of Present Illness This is a 80-year-old male with history of prostate cancer and hematuria, who presented to the hospital on 09/19/2021 for right hip arthroplasty. Per report, catheterization was unsuccessfully attempted during the operation, then again after he was awakened from anesthesia. Urology was consulted for urinary retention and difficult catheter placement. He was last seen in the urology office by Dr. Christian on 04/24/2021. He reports two outlet procedures in the past, and also notes having hematuria in the past. He has been diagnosed with prostate cancer, but states it is all low-grade and they are watching it. He denies any trouble with his urinary stream recently. Labs reviewed: Noncontributory Imaging reviewed: Bladder scan with 600 mL Allergies Allergy/AdvReac Type Severity Reaction Status Date / Time iodine Allergy Severe Anaphylaxis Verified 09/19/21 13:32 shellfish derived Allergy Severe Anaphylaxis Verified 09/19/21 13:32 prednisone AdvReac Mild Elevates Verified 09/19/21 13:32 blood sugar Insulins AdvReac Unknown Pt does Verified 09/19/21 13:32 not want (would revoke [employer]'s license) Home Medications Medication Instructions Recorded Confirmed Type allopurinol 300 mg tablet 300 mg PO QAM 09/19/20 09/19/21 History cholecalciferol (vitamin D3) 50 2,000 mcg PO QAM 09/19/20 09/19/21 History mcg (2,000 unit) tablet diclofenac sodium 75 mg 75 mg PO BID 09/19/20 09/19/21 History tablet,delayed release rosuvastatin 5 mg tablet 20 mg PO 3XWK 09/19/20 09/19/21 History sitagliptin 50 mg-metformin ER 1 tab PO BID 09/19/20 09/19/21 History 1,000 mg tablet,extended release 24h mp schn-hpy-lylti-cegbjwgue-nwofomra-gcyf-pectin 1 tab PO BID 06/14/21 09/19/21 History 1,000 mg tablet (Fiber 6) diclofenac sodium 1 % topical gel 2 g TOPICAL BID 06/14/21 09/19/21 History lisinopril 2.5 mg tablet 2.5 mg PO 3XWK 06/14/21 09/19/21 History pioglitazone 45 mg tablet 45 mg PO QAM 06/14/21 09/19/21 History empagliflozin 10 mg tablet 10 mg PO Q2D 09/07/21 09/19/21 History (Jardiance) glipizide 5 mg tablet 5 mg PO QAM 09/07/21 09/19/21 History acetaminophen 500 mg capsule 1,000 mg PO TID 30 Days #180 cap 09/18/21 09/19/21 Rx ondansetron HCl 4 mg tablet 4 mg PO Q6 PRN #25 tab 09/18/21 09/19/21 Rx tramadol 50 mg tablet 50 - 100 mg PO Q6H PRN #40 tab 09/18/21 09/19/21 Rx sennosides 8.6 mg-docusate sodium 1 tab-cap PO DAILY #14 tab 09/19/21 Rx 50 mg tablet (Senokot-S) Patient History Medical History Arthritis Cancer Urethral (several years ago) Diabetes Hyperlipidemia Prostate cancer Under surveillance (Dr. Christian) Surgical History History of colonoscopy History of esophagogastroduodenoscopy (EGD) History of eye surgery R/L cataracts History of left hip replacement Left RYAN (05/07/16): SAB x1 attempt at [facility] History of open reduction and internal fixation (ORIF) procedure LLE (1975) History of prostate surgery Biopsy Hx of appendectomy Hx of tonsillectomy Family History Father Diabetes Renal failure Social History Smoking Status: Former smoker Smoking End Date: Quit 1995; Second Hand Exposure: Yes (FATHER SMOKED); Do You Dip or Chew Tobacco: No; Tobacco Cessation Education Requested by Patient: No Hx Alcohol Use: Yes Alcohol type: beer, wine and hard liquor Hx Substance Use: No Preferred Language: Ukrainian Communication Ability: Effective Machine Rough Rounder Required: No Beliefs That Will Affect Care: None marital status: Current Living Situation: Spouse Other Information That Helps Us Care for You: No Feels Safe at Home: Yes Safety Concerns: Feels Safe At This Time Assistive Devices: Glasses and Hearing Aid - Bilateral Review of Systems Constitutional: no fever and no chills Eyes: no worsening vision Ear, Nose, Mouth, Throat: no tinnitus Respiratory: no cough and no dyspnea Cardiovascular: no chest pain and no palpitations Gastrointestinal: no abdominal pain, no nausea, no vomiting, no constipation and no diarrhea/loose stools Genitourinary: + as per Subjective / HPI Musculoskeletal: just had hip surgery Integumentary: no rash and no lesions Neurologic: no localized weakness, no numbness and no paresthesia Endocrine: no fatigue Hematologic / Lymphatic: no easy bleeding and no easy bruising Physical Exam Constitutional: well developed and well nourished; no acute distress Eyes: + anicteric sclerae; pupils not irregular Respiratory: normal respiratory effort; no respiratory distress, does not use accessory muscles and no cough Cardiovascular: Rate/Rhythm: regular rate and regular rhythm Gastrointestinal (Abdomen): Inspection/Auscultation: abdomen normal to inspection; abdomen not distended Percussion/Palpation: abdomen soft; abdomen nontender Musculoskeletal: Compressive devices on lower extremities. Skin: normal turgor; no rashes and no lesions Neurologic: moves all extremities and awake Psychiatric: Orientation: alert and oriented x 3 Genitourinary: Penis with orthotopic meatus, some blood present. Eventually, Ward catheter was placed successfully with initially clear urine output, which turned dark over time. Results & Data ([facility]) Vital Signs (Past 12 Hours) Vital Signs Temp Pulse Pulse Resp BP Pulse Ox 09/19/21 18:00 37.7 C H 83 20 129/68 93 09/19/21 17:00 37.5 C 82 16 122/62 94 09/19/21 16:00 36.8 C 79 16 116/64 94 09/19/21 15:30 36.8 C 79 18 125/66 93 09/19/21 15:00 36.3 C L 82 16 144/75 H 95 09/19/21 14:30 84 19 117/66 98 09/19/21 14:15 79 18 127/61 97 09/19/21 13:45 79 18 134/77 94 09/19/21 13:30 72 26 H 143/75 H 97 09/19/21 13:15 71 13 125/87 97 09/19/21 13:00 70 20 135/78 97 09/19/21 12:45 36.3 C L 67 14 122/86 98 09/19/21 12:30 74 14 138/74 98 09/19/21 12:20 66 20 129/67 97 09/19/21 12:10 66 12 118/72 94 09/19/21 12:00 63 12 118/68 99 09/19/21 11:50 66 12 119/68 99 09/19/21 11:40 36.1 C L 64 12 120/70 99 09/19/21 11:30 73 12 134/59 L 94 09/19/21 11:20 76 15 118/72 97 09/19/21 11:10 79 18 132/71 96 09/19/21 11:04 36.1 C L 86 14 129/61 95 PG Care Time/CCT Total # of Minutes Spent Total Time Spent with Patient: Total time spent is greater than 50% in coordination of care (as documented) at patient's floor/unit and/or counseling patient: Coding Level of Care Code 82068 Initial Inpt Care Lvl 2 Diagnoses Urinary retention R33.9 Cystoscopy (Urology) Procedure performed by: Homero Damon The proposed procedure was discussed with the patient, as well as anticipated risks and benefits. He and his expressed understanding and agreed to proceed with the procedure. I initially attempted to place an 18 [place] coud tip catheter. This advanced easily to what felt like the proximal urethra, but then met resistance and felt like it was curling in the prostate. Despite gentle pressure, the catheter could not be advanced to the bladder, therefore was removed. Patient was reprepped and draped in the usual sterile fashion in the supine position. A well-lubricated flexible cystoscope was inserted per urethra and advanced under direct visualization. The pendulous urethra was normal with no strictures or mucosal abnormalities. In the bulbar urethra there was a false passage along the ventral aspect. Gently angling the scope upwards, it could be navigated past the prostate and into the bladder. Visualization of the prostate and the bladder was difficult due to some clots and turbidity. A 0.038 inch zip wire was inserted through the cystoscope, then the scope was removed leaving the wire in place. A councilized 14 Fr silicone catheter was advanced over the wire and up to the hub, at which point it was draining clear yellow urine. The balloon was inflated with 10 mL normal saline and the wire was removed. The catheter was attached to gravity drainage. The patient tolerated the procedure well and with no immediate complications. Indications: Other (Urinary retention) Discussed with: patient Patient Status: Tolerated procedure well Complications: No complications
[2021-09-19] MEDS ORDERED: SENNA 8.6 MG TAB PO SCH (21:00)
[2021-09-19] MEDS ORDERED: [UNRECOGNIZED DRUG - OTHER] PO SCH (21:00)
[2021-09-19] MEDS ORDERED: [UNRECOGNIZED DRUG - OTHER] PO SCH (21:00)
[2021-09-19] MEDS ORDERED: METFORMIN PO SCH (21:00)
[2021-09-19] MEDS ORDERED: SITAGLIPTIN PO SCH (21:00)
[2021-09-19] MEDS: ASPIRIN 81 MG ECTAB PO SCH (21:12)
[2021-09-19] MEDS: DOCUSATE SODIUM 100 MG CAP PO SCH (21:14)
[2021-09-19] MEDS: SULFAMETHOXAZOLE/TRIMETHOPRIM DS 800/160MG TAB PO SCH (21:50)
[2021-09-20] MEDS: ceFAZolin 2000MG 2,000 MG/15 ML SYR IV SCH (01:12)
[2021-09-20] MEDS: KETOROLAC TROMETHAMINE 15 MG/ML VIAL IV SCH ×2 (01:12→08:02)
[2021-09-20] MEDS ORDERED: ONDANSETRON 4 MG OD TAB PO PRN (03:25)
[2021-09-20] MEDS ORDERED: NALOXONE HCL 0.4 MG/1 ML VIAL/CARP IV PRN (03:25)
[2021-09-20] MEDS ORDERED: traMADol HCL 50 MG TABLET PO PRN (03:25)
[2021-09-20] MEDS ORDERED: METOCLOPRAMIDE HCL INJ 5 MG/ML 2 ML VIAL IV PRN (03:25)
[2021-09-20] MEDS ORDERED: ONDANSETRON INJ 2 MG/ML 2 ML VIAL IV PRN (03:25)
[2021-09-20] MEDS ORDERED: HYDROmorphone INJ 0.5 MG/0.5 ML SYR IV PRN (03:25)
[2021-09-20] MEDS: ACETAMINOPHEN 500 MG TAB PO SCH (05:13)
[2021-09-20 08:26] LABS: Creatinine Clr Calc Pharmacy 66.7 ml/min; Est GFR (African American) 80.6 ml/min; Est GFR (Non-African American) 69.6 ml/min
[2021-09-20 08:32] LABS: Basophils # (auto) 0.01 K/uL (0-0.2); Basophils % (auto) 0.2 %; Eosinophils # (auto) 0.05 K/uL (0-0.5); Eosinophils % (auto) 0.9 %; Hematocrit (blood only) 34.8 % (42-52); Hemoglobin 11.4 g/dL (14.0-18.0); Immature Granulocytes # (auto) 0.01 K/uL (0.00-0.02); Immature Granulocytes % (auto) 0.2 %; Lymphocytes # (auto) 0.71 K/uL (1.2-3.4); Lymphocytes % (auto) 12.2 %; Mean Corpuscular Hemoglobin 31.8 pg (25-34); Mean Corpuscular Hgb Conc 32.8 g/dL (32-36); Mean Corpuscular Volume 97.2 fL (80-100); Mean Platelet Volume 10.7 fL (7.4-10.4); Monocytes # (auto) 0.78 K/uL (0.11-0.59); Monocytes % (auto) 13.4 %; Neutrophils # (auto) 4.28 K/uL (1.4-6.5); Neutrophils % (auto) 73.1 %; Platelet Count 161 K/uL (130-400); RDW Coefficient of Variation 13.7 % (11.5-14.5); RDW Standard Deviation 49.2 fL (36.4-46.3); Red Blood Count 3.58 M/uL (4.7-6.1); White Blood Count 5.84 K/uL (4.8-10.8)
--- NOTE | 2021-09-20 08:41 | Progress Notes ---
DATE OF SERVICE: 09/20/2021 SUBJECTIVE: This is a 80-year-old gentleman postoperative day 1 from right total hip replacement. H ip is doing well. He had difficulty voiding last night and they tried to place a Ward, but did not get anything out. Urology was consulted and they had to do a cystoscopy. He has got a Ward cathete r now. They recommended it being in for a week. Hip is doing well. Really not much in the way of mihai ott. OBJECTIVE: VITAL SIGNS: Temperature is 37.0. Vital signs are stable. PHYSICAL EXAMINATION: GENERAL: Shows a pleasant, elderly male. He is lying in bed, looks pretty comfortable. EXTREMITIES: Examination of the right hip reveals the dressing to be clean, dry and intact. His leg lengths are equal. Thigh is soft and supple. He is neurologically intact. LABORATORY DATA: Labs are pending. ASSESSMENT: A 80-year-old gentleman postoperative day 1 from right hip replacement. Orthopedically doing well. He had difficulty voiding and now he has got a Ward catheter in with the plan to leavin g in for a week. No other complaints. PLAN: 1. DVT prophylaxis includes thigh-high TEDs, SCDs, and aspirin twice a day. 2. PT, OT, weightbear as tolerated. Right total hip protocol. 3. Pain control, doing okay with current pain regimen. 4. Difficulty urinating. He has got a catheter in and the plan is to leave that in for a week and manuel redd will follow up with urology. 5. Disposition: Plan to discharge to home with some home health possibly later today if he does oka y in therapy. Job ID: [id number]
[2021-09-20] MEDS ORDERED: CHOLECALCIFEROL 1,000 UNITS 25 MCG TAB PO SCH (09:00)
[2021-09-20] MEDS ORDERED: MULTIVITAMIN TAB PO SCH (09:00)
[2021-09-20] MEDS ORDERED: NON-FORMULARY MEDICATION (Pioglitazone 45 mg Tablet) PO SCH (09:00)
[2021-09-20] MEDS ORDERED: glipiZIDE 5 MG TAB PO SCH (09:00)
[2021-09-20] MEDS ORDERED: allopurinoL 300 MG TAB PO SCH (09:00)
[2021-09-20] MEDS: SULFAMETHOXAZOLE/TRIMETHOPRIM DS 800/160MG TAB PO SCH (09:03)
[2021-09-20] MEDS: ASCORBIC ACID 500 MG TAB PO SCH (09:03)
[2021-09-20] MEDS: ASPIRIN 81 MG ECTAB PO SCH (09:03)
[2021-09-20] MEDS: DOCUSATE SODIUM 100 MG CAP PO SCH (09:04)
[2021-09-20] MEDS: TAMSULOSIN HCL 0.4 MG CAP PO SCH (09:06)
--- NOTE | 2021-09-20 09:19 | Pharmacy Report ---
Pharmacy Glycemic Short Note 2 - Date of Service September 20, 2021 - Glycemic Short BSG Results (Last 24 hours): 09/19/21 09/19/21 09/19/21 11:15 17:12 20:08 Glucose POC Glucose 181 H 169 H 173 H 09/20/21 09/20/21 07:34 07:54 Glucose 175 H POC Glucose 162 H OUTPATIENT ANTIDIABETIC REGIMEN: * Glipizide ER, empagliflozin, pioglitazone, metformin-sitagliptin ER * A1c = 8.9% ASSESSMENT: * Cale is a 80 yo T2DM s/p R RYAN on 09/19/21 * He takes multiple oral anti-diabetic medications as an outpatient. These medication were held on admission and patient was placed on SQ basal + bolus insulin. Cale accepted a dose of Lantus 16 units last evening with dinner but is refusing novolog. * Scr is at baseline and patient is a possible discharge for later today, therefore I will resume his home oral medications that we stock. PLAN FOR INPATIENT GLYCEMIC CONTROL: * Resume metformin ER 1g PO BID * Resume sitagliptin mg Po BID * Will also resume glipizide ER if patient continues to refuse novolog * Basal insulin * hold * Bolus insulin - if patient accepts * NovoLog per scale ACHS or Q6hrs while NPO * Goal Range: Low 110 mg/dL - High 140 mg/dL * Correction Factor: 20 mg/dL/unit * Nutritional / Prandial insulin per carb ratio of 1 unit per 8 grams CHO consumed PLAN FOR ISCHARGE: * A1c 8.9% * A1c above goal despite 5 oral anti-diabetic medications. Most of these medications are at maximum dosage. The glipizide dose could be increased (patient would need to be cautioned on s/s of hypoglycemia as this is a common side effect of this drug class). To improve glycemic control, patient would likely benefit from insulin therapy. This decision can be deferred to outpat ient physician.
[2021-09-20] MEDS: INSULIN ASPART 100 UNITS/ML 3 ML PEN SC SCH (09:20)
[2021-09-20] MEDS ORDERED: SITagliptin PHOSPHATE 25 MG TAB PO SCH (09:30)
[2021-09-20] MEDS ORDERED: metFORMIN HCL ER 500 MG TABCR PO SCH (09:30)
[2021-09-20] MEDS ORDERED: glipiZIDE ER 2.5 MG TABCR PO SCH (09:45)
[2021-09-20 10:59] VITALS: BP 126/68; PULSE 88; TEMP 99.6; O2SAT 93
--- NOTE | 2021-09-26 07:02 | Discharge Summary ---
Date of Service September 26, 2021 Discharge Data Consultations 09/19/21 16:45 Consult Urology Routine Procedures Performed Operation Date: 08/06/21 10:50 <No data on this case meets the specified criteria> Operation Date: 09/19/21 09:05 Actual Procedures p Right Total Hip Arthroplasty, Uncemented(Right) - Romain Coburn MD Operation Date: 10/03/21 07:15 <No data on this case meets the specified criteria> Hospital Course (1) Status post total hip replacement, right: 80 year old patient admitted on 09/19/21 and underwent total hip arthroplasty. He tolerated the procedure well and there were no complications. Transferred to the PACU post op and later to the orthopedic floor for further care. He was given ancef for antibiotic prophylaxis. He was also given CHAGO stockings, SCDs, and aspirin for DVT prophylaxis. Hemoglobin, hematocrit, and vital signs were monitored during his hospital stay and remained stable. Did not require any blood transfusions. There were no complications during his hospital stay. He did have some urinary retention post op and difficulty placing a catheter. Urology was consulted and he had a cystoscopy and catheter placement. By post op day #1 the patient was tolerating a diabetc diet, pain was reasonably controlled with oral pain medicine, and he was participating in physical therapy. On post op day #1 the patient was discharged home and set up with home health care. He was given printed discharge instructions including prescriptions for aspirin, bactrim DS, and tamsulosin. Continue physical therapy, weight bearing as tolerated. Continue hip precautions. Continue CHAGO stockings. Follow up approximately 2 weeks post op or sooner if there are problems or concerns. He should follow up with urology in 1 week. Coding Level of Care Code None Diagnoses Status post total hip replacement, right Z96.641
== END 2021-09-20 13:53 | disposition home health service (06) ==
LOC: PACUINP 06:39 → ASU 06:39 → 3N 14:53

== ENCOUNTER 2022-03-10 00:57 | Inpatient (IN) ==
[2022-03-10] MEDS ORDERED: SODIUM CHLORIDE 0.9% 500 ML IV ONE (01:14)
[2022-03-10 01:30] LABS: Basophils # (auto) 0.02 K/uL (0-0.2); Basophils % (auto) 0.3 %; Eosinophils # (auto) 0.05 K/uL (0-0.5); Eosinophils % (auto) 0.7 %; Hematocrit (blood only) 35.6 % (42-52); Hemoglobin 11.4 g/dL (14.0-18.0); Immature Granulocytes # (auto) 0.04 K/uL (0.00-0.02); Immature Granulocytes % (auto) 0.5 %; Lymphocytes # (auto) 0.94 K/uL (1.2-3.4); Lymphocytes % (auto) 12.3 %; Mean Corpuscular Hemoglobin 31.7 pg (25-34); Mean Corpuscular Volume 98.9 fL (80-100); Mean Platelet Volume 10.7 fL (7.4-10.4); Monocytes # (auto) 0.88 K/uL (0.11-0.59); Monocytes % (auto) 11.5 %; Neutrophils # (auto) 5.74 K/uL (1.4-6.5); Neutrophils % (auto) 74.7 %; Platelet Count 203 K/uL (130-400); RDW Coefficient of Variation 13.9 % (11.5-14.5); RDW Standard Deviation 50.3 fL (36.4-46.3); White Blood Count 7.67 K/uL (4.8-10.8)
[2022-03-10 01:54] LABS: Troponin I High Sensitivity 4.5 pg/ml (0-20)
[2022-03-10 02:08] LABS: Alanine Aminotransferase 14 U/L (7-52); Albumin Globulin Ratio 1.6 (0.9-2); Albumin Level 3.7 gm/dl (3.4-5.0); Alkaline Phosphatase 61 U/L (34-104); Anion Gap 8 (3-11); Aspartate Aminotransferase 14 U/L (13-39); BUN Creatinine Ratio 19.8 (10-20); Bilirubin,Total 0.4 mg/dl (0.2-1.0); Blood Urea Nitrogen 20 mg/dl (6-23); Carbon Dioxide 26 mmol/L (21-32); Chloride 103 mmol/L (98-107); Est GFR (Non-African American) 69.9 ml/min; Globulin 2.3 gm/dl (2.5-4.0); Glucose 218 mg/dl (70-99(Fasting)); Lipase 19 U/L (11-82); Potassium 4.4 mmol/L (3.5-5.1); Sodium 137 mmol/L (136-145)
[2022-03-10] MEDS ORDERED: SODIUM CHLORIDE 0.9% 1000ML 1,000 ML IV ONE (02:51)
[2022-03-10 03:15] LABS: iSTAT Creatinine 0.9 mg/dl (0.6-1.3); iSTAT Hemoglobin 10.5 g/dl (14.0-18.0); iSTAT Potassium 4.3 mmol/L (3.3-5.0)
[2022-03-10] MEDS ORDERED: PANTOPRAZOLE BOLUS/DRIP 1 EA IV STA (04:04)
[2022-03-10] MEDS ORDERED: PANTOprazole 80 MG in DEXTROSE 5% 100 ML IV STA (04:12)
[2022-03-10] MEDS: PANTOprazole 40 MG in DEXTROSE 5% 100 ML IV SCH ×5 (04:51→19:29)
--- NOTE | 2022-03-10 06:19 | Emergency Department Note ---
Impression & Plan Acute lower GI bleeding, COVID-19 Admit to the [facility] ED Provider Note NAME: CY SMITH JR AGE: 81 SEX: M ARRIVES VIA: Ambulance INFORMANT: Patient and his son ED PROVIDER(S): Ester Bhat DO CHIEF COMPLAINT: GI bleeding PLAN: Disposition: Admit to the [facility] Condition: Guarded MEDICAL DECISION MAKING: This is an 81-year-old male patient who presents to the emergency department with acute lower GI bleeding. The patient developed bright red GI bleeding around 530 this evening that persisted throughout the evening. The patient became quite weak and lightheaded and EMS was called. Upon their arrival, he was hypotensive and tachycardic with significant weakness. The patient admits to taking routine diclofenac for osteoarthritis. He has been supplementing with ibuprofen over the past couple of days for flulike symptoms. The patient tested positive for COVID here in the emergency department. He had no episodes of bright red bleeding per rectum, however his blood pressure did drop into the 70s systolically and required IV crystalloid fluids. Triage Nursing notes reviewed and agree with them. Additional history obtained from son who is at the bedside Vital Signs: reviewed and remarkable for no significant abnormalities Differential diagnosis: Anemia; lower GI bleeding; upper GI bleeding ER treatment provided: IV normal saline bolus IV normal saline drip Diagnostics interpreted by me: ECG: Normal sinus rhythm at a rate of [address] segment elevation or signs of ischemia. There is no ectopy. Cardiac Monitoring: Sinus rhythm at 90 Laboratory studies: See below HPI: 81/M arrives for evaluation of bright red GI bleeding. Patient had an episode of bright red GI bleeding around 5:30 PM this evening. He has never had an episode like this in the past. He does admit to increased NSAID use for flulike symptoms over the past couple of days. He has been taking 2 of them every 4 hours since then. At baseline, the patient takes diclofenac for osteoarthritis. He is also been instructed to increase his lisinopril dose over the past couple of days for elevated blood pressures. ROS: See above HPI for pertinent positives & negatives. A total of 10 systems reviewed and were otherwise negative. PAST MEDICAL HISTORY:See Below PAST SURGICAL HISTORY:See Below FAMILY HISTORY:See Below SOCIAL HISTORY:See Below HOME MEDICATIONS:See list ALLERGIES:See list VITALS:See Below PHYSICAL EXAMINATION: HEENT: Head - normocephalic and atraumatic. Pupils are equal, round, and reactive to light. Extraocular eye muscles are intact, and sclera are anicteric. Nose - moist nasal mucosa without discharge. Mouth - moist buccal mucosa. Oropharynx is nonerythematous and there is no tonsillar exudate or edema noted. Neck: Supple; no cervical lymphadenopathy noted Heart: Regular rate and rhythm. There is a normal S1 and S2 with no murmurs, clicks, or gallops appreciated. Lungs: Clear to auscultation bilaterally with no wheezes, rales, or rhonchi. Abdomen: Soft, completely nontender, nondistended, with good bowel sounds. There are no palpable pulsatile masses or hepatosplenomegaly. There is no guarding, rigidity, or rebound noted. Extremities: No evidence of cyanosis, clubbing, or edema. There are easily palpable peripheral pulses. Skin: warm and dry with good turgor and no rashes. ED COURSE: Times/Reassessments: 0130: The patient was evaluated in room B5. A complete history and physical was performed. An order was placed for continuous cardiac monitoring. The patient was in a normal sinus rhythm at a rate of 90. A twelve-lead EKG was obtained as described above. The patient's blood pressure dropped precipitously into the 70s systolically. He was bolused with a liter of IV normal saline solution. He had been typed and screened for packed red blood cells. He had no episodes of bleeding while here in the emergency department. The patient did test positive for COVID-19 and was placed in isolation. Discussed the case with the hospitalist and they will evaluate for further management. Ester Bhat DO Past Med/Surg History Medical History (Updated 03/11/22 @ 17:28 by Swati Bryant MD) Arthritis Cancer Urethral (several years ago) Diabetes Hyperlipidemia Prostate cancer Under surveillance (Dr. Christian) Surgical History History of colonoscopy History of esophagogastroduodenoscopy (EGD) History of eye surgery R/L cataracts History of left hip replacement Left RYAN (05/07/16): SAB x1 attempt at [facility] History of open reduction and internal fixation (ORIF) procedure LLE (1975) History of prostate surgery Biopsy Hx of appendectomy Hx of tonsillectomy Family History Father Diabetes Renal failure Social History Smoking Status: Former smoker Second Hand Exposure: Yes (FATHER SMOKED); Hx Alcohol Use: Yes Alcohol type: beer Hx Substance Use: No Preferred Language: Divehi Communication Ability: Effective Shade Classifier Required: No Beliefs That Will Affect Care: None marital status: Current Living Situation: Spouse Feels Safe at Home: Yes Safety Concerns: Feels Safe At This Time Assistive Devices: None Allergies Allergies Allergy/AdvReac Type Severity Reaction Status Date / Time iodine Allergy Severe Anaphylaxis Verified 03/10/22 01:06 shellfish derived Allergy Severe Anaphylaxis Verified 03/10/22 01:06 prednisone AdvReac Mild Elevates Verified 03/10/22 01:06 blood sugar Insulins AdvReac Unknown Pt does Verified 03/10/22 01:06 not want (would revoke [employer]'s license) Home Meds Home Medications Medication Instructions Recorded Confirmed allopurinol 300 mg tablet 300 mg PO QAM 09/19/20 03/10/22 cholecalciferol (vitamin D3) 50 2,000 mcg PO QAM 09/19/20 03/10/22 mcg (2,000 unit) tablet diclofenac sodium 75 mg 75 mg PO BID 09/19/20 03/10/22 tablet,delayed release diclofenac sodium 1 % topical gel 2 g TOPICAL BID 06/14/21 03/10/22 lisinopril 2.5 mg tablet 2.5 mg PO QAM 06/14/21 03/10/22 pioglitazone 45 mg tablet 45 mg PO QAM 06/14/21 03/10/22 glipizide 5 mg tablet 5 mg PO QAM 09/07/21 03/10/22 sitagliptin 50 mg-metformin 1,000 1 tab PO BID 11/07/21 03/10/22 mg tablet (Janumet) cyanocobalamin (vitamin B-12) 500 500 mcg PO DAILY 03/10/22 03/10/22 mcg tablet (Vitamin B-12) fiber 2 tab PO BID 03/10/22 03/10/22 loratadine 10 mg tablet 10 mg PO DAILY 03/10/22 03/10/22 rosuvastatin 20 mg tablet 20 mg PO [id number] 03/10/22 03/10/22 Previous Rx's Medication Instructions Recorded tadalafil 10 mg tablet 10 mg PO DAILY PRN #20 tab 02/25/22 Results & Data (ED) Vital Signs Vital Signs - 24 hr 03/10/22 01:05 03/10/22 01:06 03/10/22 01:10 Temperature 37.5 C Temperature Source Oral Pulse Rate 79 81 83 Pulse Rate [Right] Pulse Rate from SpO2 Sensor 81 83 Pulse Rhythm [Right] Pulse Strength [Right] Respiratory Rate 21 25 H 25 H Respiratory Effort / Characteristics Non-Labored Respiratory Depth Normal Respiratory Pattern Regular Blood Pressure 141/66 H Blood Pressure [Right Arm] Blood Pressure Mean 91 Blood Pressure Mean [Right Arm] Blood Pressure Position Sitting Blood Pressure Position [Right Arm] Pulse Oximetry 96 97 96 Oxygen Delivery Method Room Air Sepsis Recent Fever Within 48 Hours No Sepsis New/Unexplained Change in Mental Status No Sepsis Action Taken by Nursing No Action Required 03/10/22 01:20 03/10/22 01:30 03/10/22 01:40 Temperature Temperature Source Pulse Rate 86 86 88 Pulse Rate [Right] Pulse Rate from SpO2 Sensor 85 88 88 Pulse Rhythm [Right] Pulse Strength [Right] Respiratory Rate 34 H 26 H 29 H Respiratory Effort / Characteristics Respiratory Depth Respiratory Pattern Blood Pressure 108/56 L Blood Pressure [Right Arm] Blood Pressure Mean 73 Blood Pressure Mean [Right Arm] Blood Pressure Position Blood Pressure Position [Right Arm] Pulse Oximetry 96 95 98 Oxygen Delivery Method Sepsis Recent Fever Within 48 Hours Sepsis New/Unexplained Change in Mental Status Sepsis Action Taken by Nursing 03/10/22 01:50 03/10/22 01:52 03/10/22 02:00 Temperature Temperature Source Pulse Rate 87 86 Pulse Rate [Right] 83 Pulse Rate from SpO2 Sensor 86 86 Pulse Rhythm [Right] Regular Pulse Strength [Right] Normal Respiratory Rate 16 18 23 Respiratory Effort / Characteristics Non-Labored Respiratory Depth Normal Respiratory Pattern Blood Pressure 115/59 L Blood Pressure [Right Arm] 106/55 L Blood Pressure Mean 77 Blood Pressure Mean [Right Arm] 72 Blood Pressure Position Blood Pressure Position [Right Arm] Pulse Oximetry 97 97 97 Oxygen Delivery Method Room Air Sepsis Recent Fever Within 48 Hours Sepsis New/Unexplained Change in Mental Status Sepsis Action Taken by Nursing 03/10/22 02:10 03/10/22 02:20 03/10/22 02:30 Temperature Temperature Source Pulse Rate 87 79 73 Pulse Rate [Right] Pulse Rate from SpO2 Sensor 87 80 73 Pulse Rhythm [Right] Pulse Strength [Right] Respiratory Rate 27 H 15 15 Respiratory Effort / Characteristics Respiratory Depth Respiratory Pattern Blood Pressure 89/50 L Blood Pressure [Right Arm] Blood Pressure Mean 63 Blood Pressure Mean [Right Arm] Blood Pressure Position Blood Pressure Position [Right Arm] Pulse Oximetry 96 96 95 Oxygen Delivery Method Sepsis Recent Fever Within 48 Hours Sepsis New/Unexplained Change in Mental Status Sepsis Action Taken by Nursing 03/10/22 02:40 03/10/22 02:46 03/10/22 02:50 Temperature Temperature Source Pulse Rate 69 79 Pulse Rate [Right] 79 Pulse Rate from SpO2 Sensor 69 80 Pulse Rhythm [Right] Regular Pulse Strength [Right] Normal Respiratory Rate 15 19 14 Respiratory Effort / Characteristics Non-Labored Respiratory Depth Normal Respiratory Pattern Blood Pressure Blood Pressure [Right Arm] 99/48 L Blood Pressure Mean Blood Pressure Mean [Right Arm] 65 Blood Pressure Position Blood Pressure Position [Right Arm] Sitting Pulse Oximetry 99 95 97 Oxygen Delivery Method Room Air Sepsis Recent Fever Within 48 Hours Sepsis New/Unexplained Change in Mental Status Sepsis Action Taken by Nursing 03/10/22 03:00 03/10/22 03:05 03/10/22 03:10 Temperature Temperature Source Pulse Rate 80 83 Pulse Rate [Right] 82 Pulse Rate from SpO2 Sensor 82 85 Pulse Rhythm [Right] Pulse Strength [Right] Respiratory Rate 14 18 17 Respiratory Effort / Characteristics Non-Labored Respiratory Depth Normal Respiratory Pattern Blood Pressure 122/55 L Blood Pressure [Right Arm] 123/74 Blood Pressure Mean 77 Blood Pressure Mean [Right Arm] 90 Blood Pressure Position Blood Pressure Position [Right Arm] Pulse Oximetry 97 93 Oxygen Delivery Method Sepsis Recent Fever Within 48 Hours Sepsis New/Unexplained Change in Mental Status Sepsis Action Taken by Nursing 03/10/22 03:17 03/10/22 03:20 03/10/22 03:30 Temperature 37.6 C H Temperature Source Oral Pulse Rate 85 86 Pulse Rate [Right] 86 Pulse Rate from SpO2 Sensor 87 Pulse Rhythm [Right] Regular Pulse Strength [Right] Normal Respiratory Rate 21 22 24 Respiratory Effort / Characteristics Non-Labored Respiratory Depth Normal Respiratory Pattern Blood Pressure Blood Pressure [Right Arm] 130/53 L Blood Pressure Mean Blood Pressure Mean [Right Arm] 78 Blood Pressure Position Blood Pressure Position [Right Arm] Lying Pulse Oximetry 95 90 Oxygen Delivery Method Room Air Sepsis Recent Fever Within 48 Hours Sepsis New/Unexplained Change in Mental Status Sepsis Action Taken by Nursing 03/10/22 03:40 03/10/22 03:41 03/10/22 03:50 Temperature Temperature Source Pulse Rate 86 99 H Pulse Rate [Right] 92 H Pulse Rate from SpO2 Sensor 86 97 H Pulse Rhythm [Right] Pulse Strength [Right] Respiratory Rate 20 18 21 Respiratory Effort / Characteristics Respiratory Depth Respiratory Pattern Blood Pressure 129/60 Blood Pressure [Right Arm] 129/60 Blood Pressure Mean 83 Blood Pressure Mean [Right Arm] 83 Blood Pressure Position Blood Pressure Position [Right Arm] Pulse Oximetry 90 97 93 Oxygen Delivery Method Room Air Sepsis Recent Fever Within 48 Hours Sepsis New/Unexplained Change in Mental Status Sepsis Action Taken by Nursing 03/10/22 04:00 03/10/22 04:05 03/10/22 04:30 Temperature Temperature Source Pulse Rate 92 H Pulse Rate [Right] 90 91 H Pulse Rate from SpO2 Sensor 93 H Pulse Rhythm [Right] Regular Regular Pulse Strength [Right] Normal Normal Respiratory Rate 21 18 18 Respiratory Effort / Characteristics Non-Labored Non-Labored Respiratory Depth Normal Normal Respiratory Pattern Regular Blood Pressure Blood Pressure [Right Arm] 127/67 118/60 Blood Pressure Mean Blood Pressure Mean [Right Arm] 87 79 Blood Pressure Position Blood Pressure Position [Right Arm] Sitting Sitting Pulse Oximetry 96 94 95 Oxygen Delivery Method Room Air Room Air Sepsis Recent Fever Within 48 Hours Sepsis New/Unexplained Change in Mental Status Sepsis Action Taken by Nursing 03/10/22 05:01 Temperature Temperature Source Pulse Rate Pulse Rate [Right] 90 Pulse Rate from SpO2 Sensor Pulse Rhythm [Right] Regular Pulse Strength [Right] Normal Respiratory Rate 19 Respiratory Effort / Characteristics Non-Labored Respiratory Depth Normal Respiratory Pattern Blood Pressure Blood Pressure [Right Arm] 110/59 L Blood Pressure Mean Blood Pressure Mean [Right Arm] 76 Blood Pressure Position Blood Pressure Position [Right Arm] Sitting Pulse Oximetry 96 Oxygen Delivery Method Room Air Sepsis Recent Fever Within 48 Hours Sepsis New/Unexplained Change in Mental Status Sepsis Action Taken by Nursing Laboratory Data Result diagrams: 03/11/22 06:55 03/11/22 06:53 Lab Results 03/10/22 03/10/22 03/10/22 Range/Units 01:19 01:19 01:19 WBC 7.67 (4.8-10.8) K/uL RBC 3.60 L (4.7-6.1) M/uL Hgb 11.4 L (14.0-18.0) g/dL POC Hgb (14.0-18.0) g/dl Hct 35.6 L (42-52) % POC Hct (42-52) % MCV 98.9 (80-100) fL MCH 31.7 (25-34) pg MCHC 32.0 (32-36) g/dL RDW Std Deviation 50.3 H (36.4-46.3) fL RDW Coeff of Kandi 13.9 (11.5-14.5) % Plt Count 203 (130-400) K/uL MPV 10.7 H (7.4-10.4) fL Immature Gran % (Auto) 0.5 % Neut % (Auto) 74.7 % Lymph % (Auto) 12.3 % Fallon % (Auto) 11.5 % Eos % (Auto) 0.7 % Baso % (Auto) 0.3 % Neut # (Auto) 5.74 (1.4-6.5) K/uL Lymph # (Auto) 0.94 L (1.2-3.4) K/uL Fallon # (Auto) 0.88 H (0.11-0.59) K/uL Eos # (Auto) 0.05 (0-0.5) K/uL Baso # (Auto) 0.02 (0-0.2) K/uL Immature Gran # (Auto) 0.04 H (0.00-0.02) K/uL PT 11.0 (9.0-12.0) Seconds INR 1.0 (0.9-1.1) POC Sodium (135-144) mmol/L Sodium 137 (136-145) mmol/L POC Potassium (3.3-5.0) mmol/L Potassium 4.4 (3.5-5.1) mmol/L POC Chloride (101-112) mmol/L Chloride 103 (98-107) mmol/L Carbon Dioxide 26 (21-32) mmol/L POC Total CO2 (24-31) mmol/L Anion Gap 8 (3-11) POC Anion Gap (16-25) mmol/L POC BUN (7-18) mg/dl BUN 20 (6-23) mg/dl Creatinine 1.01 (0.6-1.4) mg/dl POC Creatinine (0.6-1.3) mg/dl Est Cr Clr Drug Dosing Not Reportable Est GFR ( Amer) 81.0 ml/min Est GFR (Non-Af Amer) 69.9 ml/min BUN/Creatinine Ratio 19.8 (10-20) Glucose 218 H (70-99(Fasting)) mg/dl POC Glucose (other) (70-99) mg/dl Calcium 9.0 (8.5-10.1) mg/dl POC Ioniz Calcium Lars (1.12-1.32) mmol/l Total Bilirubin 0.4 (0.2-1.0) mg/dl AST 14 (13-39) U/L ALT 14 (7-52) U/L Alkaline Phosphatase 61 (34-104) U/L Troponin I High Sens 4.5 (0-20) pg/ml Total Protein 6.0 (6.0-8.3) gm/dl Albumin 3.7 (3.4-5.0) gm/dl Globulin 2.3 L (2.5-4.0) gm/dl Albumin/Globulin Ratio 1.6 (0.9-2) Lipase 19 (11-82) U/L SARS-CoV-2, RNA, NAAT (NEGATIVE) Blood Type Antibody Screen 03/10/22 03/10/22 03/10/22 Range/Units 01:26 01:48 03:02 WBC (4.8-10.8) K/uL RBC (4.7-6.1) M/uL Hgb (14.0-18.0) g/dL POC Hgb 10.5 L (14.0-18.0) g/dl Hct (42-52) % POC Hct 31 L (42-52) % MCV (80-100) fL MCH (25-34) pg MCHC (32-36) g/dL RDW Std Deviation (36.4-46.3) fL RDW Coeff of Kandi (11.5-14.5) % Plt Count (130-400) K/uL MPV (7.4-10.4) fL Immature Gran % (Auto) % Neut % (Auto) % Lymph % (Auto) % Fallon % (Auto) % Eos % (Auto) % Baso % (Auto) % Neut # (Auto) (1.4-6.5) K/uL Lymph # (Auto) (1.2-3.4) K/uL Fallon # (Auto) (0.11-0.59) K/uL Eos # (Auto) (0-0.5) K/uL Baso # (Auto) (0-0.2) K/uL Immature Gran # (Auto) (0.00-0.02) K/uL PT (9.0-12.0) Seconds INR (0.9-1.1) POC Sodium 136 (135-144) mmol/L Sodium (136-145) mmol/L POC Potassium 4.3 (3.3-5.0) mmol/L Potassium (3.5-5.1) mmol/L POC Chloride 106 (101-112) mmol/L Chloride (98-107) mmol/L Carbon Dioxide (21-32) mmol/L POC Total CO2 20 L (24-31) mmol/L Anion Gap (3-11) POC Anion Gap 16.0 (16-25) mmol/L POC BUN 21 H (7-18) mg/dl BUN (6-23) mg/dl Creatinine (0.6-1.4) mg/dl POC Creatinine 0.9 (0.6-1.3) mg/dl Est Cr Clr Drug Dosing Est GFR ( Amer) ml/min Est GFR (Non-Af Amer) ml/min BUN/Creatinine Ratio (10-20) Glucose (70-99(Fasting)) mg/dl POC Glucose (other) 229 H (70-99) mg/dl Calcium (8.5-10.1) mg/dl POC Ioniz Calcium Lars 1.00 L (1.12-1.32) mmol/l Total Bilirubin (0.2-1.0) mg/dl AST (13-39) U/L ALT (7-52) U/L Alkaline Phosphatase (34-104) U/L Troponin I High Sens (0-20) pg/ml Total Protein (6.0-8.3) gm/dl Albumin (3.4-5.0) gm/dl Globulin (2.5-4.0) gm/dl Albumin/Globulin Ratio (0.9-2) Lipase (11-82) U/L SARS-CoV-2, RNA, NAAT POSITIVE A* (NEGATIVE) Blood Type O Positive Antibody Screen NEGATIVE Administered Medications Allopurinol (Allopurinol 300 Mg Tab) 300 mg PO QAM ALMA ROSA Stop: 04/09/22 08:59 Last Admin: 03/11/22 08:29 Dose: 300 mg Documented by: [id number] Admin: 03/10/22 09:02 Dose: 300 mg Documented by: [id number] Cyanocobalamin (Cyanocobalamin (B-12) 500 Mcg Tablet) 500 mcg PO DAILY ALMA ROSA Stop: 04/09/22 08:59 Last Admin: 03/11/22 08:29 Dose: 500 mcg Documented by: [id number] Admin: 03/10/22 09:02 Dose: 500 mcg Documented by: [id number] Pantoprazole Sodium 40 mg/ (Dextrose) 100 mls @ 20 mls/hr IV Q5H ALMA ROSA Stop: 04/09/22 04:59 Last Admin: 03/11/22 14:21 Dose: 8 mg/hr, 20 mls/hr Documented by: [id number] Infusion: 03/11/22 13:28 Dose: 8 mg/hr, 20 mls/hr Documented by: [id number] Admin: 03/11/22 08:28 Dose: 8 mg/hr, 20 mls/hr Documented by: [id number] Infusion: 03/11/22 08:27 Dose: 0 mg/hr, 0 mls/hr Documented by: [id number] Admin: 03/11/22 02:44 Dose: 8 mg/hr, 20 mls/hr Documented by: [id number] Infusion: 03/11/22 02:38 Dose: 8 mg/hr, 20 mls/hr Documented by: [id number] Infusion: 03/11/22 01:36 Dose: 8 mg/hr, 20 mls/hr Documented by: [id number] Admin: 03/10/22 19:29 Dose: 8 mg/hr, 20 mls/hr Documented by: [id number] Infusion: 03/10/22 19:22 Dose: 8 mg/hr, 20 mls/hr Documented by: [id number] Admin: 03/10/22 14:51 Dose: 8 mg/hr, 20 mls/hr Documented by: [id number] Infusion: 03/10/22 14:51 Dose: 0 mg/hr, 0 mls/hr Documented by: [id number] Admin: 03/10/22 09:51 Dose: 8 mg/hr, 20 mls/hr Documented by: [id number] Infusion: 03/10/22 09:51 Dose: 8 mg/hr, 20 mls/hr Documented by: [id number] Admin: 03/10/22 04:51 Dose: 8 mg/hr, 20 mls/hr Documented by: [id number] Sodium Chloride (Nss 1000ml) 1,000 mls @ 100 mls/hr IV .Q10H ALMA ROSA Stop: 04/09/22 06:48 Last Admin: 03/11/22 17:01 Dose: 100 mls/hr Documented by: [id number] Infusion: 03/11/22 15:20 Dose: 100 mls/hr Documented by: [id number] Admin: 03/11/22 05:20 Dose: 100 mls/hr Documented by: [id number] Infusion: 03/11/22 05:20 Dose: 100 mls/hr Documented by: [id number] Admin: 03/10/22 19:22 Dose: 100 mls/hr Documented by: [id number] Infusion: 03/10/22 19:16 Dose: 100 mls/hr Documented by: [id number] Admin: 03/10/22 09:16 Dose: 100 mls/hr Documented by: [id number] Insulin Aspart (Insulin Aspart Per Unit) 0 units SC ACHS ALMA ROSA Stop: 04/09/22 07:29 Last Admin: 03/11/22 16:52 Dose: 4 units Documented by: [id number] Cosigned by: [id number] Admin: 03/11/22 11:54 Dose: 6 units Documented by: [id number] Cosigned by: [id number] Admin: 03/11/22 08:20 Dose: 6 units Documented by: [id number] Cosigned by: [id number] Admin: 03/10/22 21:01 Dose: Not Given Documented by: [id number] Admin: 03/10/22 17:58 Dose: 5 units Documented by: [id number] Cosigned by: [id number] Admin: 03/10/22 12:26 Dose: 1 units Documented by: [id number] Cosigned by: [id number] Admin: 03/10/22 09:28 Dose: 5 units Documented by: [id number] Cosigned by: [id number] Insulin Glargine (Insulin Glargine Solostar 100 Units/Ml 3 Ml Pen) 6 units SC DAILY ALMA ROSA Stop: 04/09/22 08:59 Last Admin: 03/11/22 08:28 Dose: 6 units Documented by: [id number] Cosigned by: [id number] Admin: 03/10/22 09:28 Dose: 6 units Documented by: [id number] Cosigned by: [id number] Loratadine (Loratadine 10 Mg Tab) 10 mg PO DAILY ALMA ROSA Stop: 04/09/22 08:59 Last Admin: 03/11/22 14:23 Dose: 10 mg Documented by: [id number] Admin: 03/11/22 08:29 Dose: 10 mg Documented by: [id number] Admin: 03/10/22 09:02 Dose: 10 mg Documented by: [id number] Rosuvastatin Calcium (Rosuvastatin Calcium 20 Mg Tab) 20 mg PO [id number] [facility] Stop: 04/09/22 08:59 Last Admin: 03/11/22 08:29 Dose: 20 mg Documented by: [id number] Admin: 03/10/22 18:39 Dose: Not Given Documented by: [id number] Vitamin D (Cholecalciferol 1,000 Units 25 Mcg Tab) 2,000 units PO QAM ALMA ROSA Stop: 04/09/22 08:59 Last Admin: 03/11/22 08:29 Dose: 2,000 units Documented by: [id number] Admin: 03/10/22 09:01 Dose: 2,000 units Documented by: [id number] Discontinued Medications Sodium Chloride (Nss) 500 mls @ 999 mls/hr IV .Q31M ONE Stop: 03/10/22 01:44 Last Infusion: 03/10/22 02:11 Dose: 0 mls/hr Documented by: [id number] Admin: 03/10/22 01:25 Dose: 999 mls/hr Documented by: [id number] Sodium Chloride (Nss 1000ml) 1,000 mls @ 999 mls/hr IV .Q1H1M ONE Stop: 03/10/22 03:51 Last Infusion: 03/10/22 03:41 Dose: 0 mls/hr Documented by: [id number] Admin: 03/10/22 03:08 Dose: 999 mls/hr Documented by: [id number] Pantoprazole Sodium 80 mg/ (Dextrose) 120 mls @ 480 mls/hr IV NOW STA Stop: 03/10/22 04:26 Last Infusion: 03/10/22 04:51 Dose: 0 mls/hr Documented by: [id number] Admin: 03/10/22 04:30 Dose: 480 mls/hr Documented by: [id number] Discharge Plan Visit Data Chief Complaint: GI Assessment Stated Complaint: LOWER GI BLEED/NEAR SYNCOPAL EPISODE ED Provider: Ester Bhat Discharge Problem: Acute lower GI bleeding, COVID-19 Patient Disposition: Admitted As Inpatient Discharge Instructions Interventions: ED Discharge Assessment Last Done: 03/10/22 06:34
[2022-03-10] MEDS ORDERED: NITROGLYCERIN SL 0.4 MG/TAB TAB SL PRN (06:49)
[2022-03-10] MEDS ORDERED: PANTOprazole 40 MG in DEXTROSE 5% 100 ML IV SCH (06:49)
[2022-03-10] MEDS ORDERED: ACETAMINOPHEN 325 MG TAB PO PRN (06:49)
[2022-03-10] MEDS ORDERED: ONDANSETRON INJ 2 MG/ML 2 ML VIAL IV PRN (06:49)
[2022-03-10] MEDS ORDERED: PANTOprazole 80 MG in DEXTROSE 5% 100 ML IV ONE (06:49)
[2022-03-10 07:40] LABS: Basophils # (auto) 0.01 K/uL (0-0.2); Basophils % (auto) 0.2 %; Hematocrit (blood only) 29.1 % (42-52); Hemoglobin 9.4 g/dL (14.0-18.0); Immature Granulocytes # (auto) 0.06 K/uL (0.00-0.02); Lymphocytes % (auto) 10.4 %; Mean Corpuscular Hemoglobin 32.4 pg (25-34); Mean Corpuscular Hgb Conc 32.3 g/dL (32-36); Mean Corpuscular Volume 100.3 fL (80-100); Mean Platelet Volume 10.8 fL (7.4-10.4); Monocytes # (auto) 0.42 K/uL (0.11-0.59); Monocytes % (auto) 7.3 %; Neutrophils # (auto) 4.69 K/uL (1.4-6.5); Neutrophils % (auto) 81.1 %; Platelet Count 196 K/uL (130-400); RDW Coefficient of Variation 13.9 % (11.5-14.5); RDW Standard Deviation 50.9 fL (36.4-46.3); White Blood Count 5.78 K/uL (4.8-10.8)
[2022-03-10 08:02] LABS: BUN Creatinine Ratio 22.5 (10-20); Calcium 8.4 mg/dl (8.5-10.1); Creatinine Clr Calc Pharmacy 76.8 ml/min; Est GFR (African American) 93.6 ml/min; Est GFR (Non-African American) 80.8 ml/min; Magnesium 1.5 mg/dl (1.7-2.4); Potassium 4.5 mmol/L (3.5-5.1)
--- NOTE | 2022-03-10 08:02 | XRay Report ---
SINGLE VIEW CHEST CLINICAL HISTORY: Covid FINDINGS: 2 AP, portable, upright chest radiographs are compared to study dated 06/15/2021. The examina tion is degraded by portable technique and apical lordotic positioning. The heart is enlarged. The pu lmonary vasculature is noncongested. Mild scarring/atelectasis is noted at the lung bases. No airspac e consolidation or large pleural effusion is identified. A hiatal hernia is noted. No pneumothorax is seen. The skeletal structures are osteopenic. The bony thorax is grossly intact. Arthritic change is noted in the shoulders. IMPRESSION: 1. Cardiomegaly with no active disease in the chest. 2. Hiatal hernia. ACT 112: Negative or not required by law. Electronically signed by: Izaiah Bowers M.D. 03/10/2022 8:00 AM
[2022-03-10] MEDS: CHOLECALCIFEROL 1,000 UNITS 25 MCG TAB PO SCH (09:01)
[2022-03-10] MEDS: CYANOCOBALAMIN (B-12) 500 MCG TABLET PO SCH (09:02)
[2022-03-10] MEDS: allopurinoL 300 MG TAB PO SCH (09:02)
[2022-03-10] MEDS: LORATADINE 10 MG TAB PO SCH (09:02)
[2022-03-10] MEDS: SODIUM CHLORIDE 0.9% 1000ML 1,000 ML IV SCH ×2 (09:16→19:22)
[2022-03-10] MEDS: INSULIN ASPART PER UNIT SC SCH ×4 (09:28→21:01)
[2022-03-10] MEDS: INSULIN GLARGINE SOLOSTAR 100 UNITS/ML 3 ML PEN SC SCH (09:28)
--- NOTE | 2022-03-10 09:50 | History and Physical Report ---
DATE OF ADMISSION: 03/10/2022 CHIEF COMPLAINT: GI bleed. HISTORY OF PRESENT ILLNESS: An 81-year-old male with past medical history significant for type 2 diabetes, gout, hyperlipidemia, GERD, history of prostate cancer - under surveillance, history of hematuria in the past, comes with melena and some blood in the stools. The patient states he had a few episodes since the evening yesterday; as it is nonstopping, he came to the hospital. His hemoglobin is 11.4. The patient is also having fever and some cough that started this week. His also had similar symptoms and tested her for COVID on Friday, it was negative but his COVID came positive here. The patient says he is COVID vaccinated and boosted twice. Has mild temperature here, saturating okay. Denies any shortness of breath, no chest pain, no headache, no blurred visions, no earache. Has some mild runny nose. Sounds raspy, but no sore throat. Appetite is okay. No difficulty swallowing. No abdominal pain. Currently no hematuria. Never had GI bleeds in the past. The patient is on diclofenac sodium for the last 6 years. For last one week, he is using Tylenol and ibuprofen for his fever and flu-like symptoms. ALLERGIES: IODINE, SHELLFISH DERIVED, PREDNISOLONE. 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 PAST SURGICAL HISTORY: Appendectomy, colonoscopy, cystoscopy, laser cataract surgery, tonsillectomy and adenoidectomy, throat surgery, hip surgeries. MEDICATIONS: The patient is on allopurinol 300 mg p.o. a.m., vitamin D 2000 unitsp.o. daily, vitamin B12 500 mcg p.o. daily, diclofenac sodium 2 g topical b.i.d., diclofenac sodium delayed release 75 mg p.o. b.i.d., fiber 2 tablets p.o. b.i.d., glipizide 5 mg p.o. a.m., lisinopril 2.5 mg p.o. a.m., loratadine 10 mg p.o. daily, pioglitazone 45 mg p.o. a.m., rosuvastatin 20 mg p.o. 3 times a week, sitagliptin and metformin 500/1000 mg p.o. b.i.d., tadalafil 10 mg p.o. daily p.r.n. FAMILY HISTORY: Significant for sister has breast cancer; father had diabetes, eye problems; uncle had MO; maternal grandmother had TIAs. SOCIAL HISTORY: Quit smoking in 1995, smoked 2 packs a day for 20 years. Alcohol, rarely. No drug use. REVIEW OF SYSTEMS: As per HPI. Rest of the review of systems is negative. PHYSICAL EXAMINATION: GENERAL: The patient is of moderate build, not in acute distress. VITAL SIGNS: Temperature 37.6, pulse 90, respiratory rate 18, blood pressure 127/67, oxygen 94% on room air. HEENT: Pupils equal, round and reactive to light. Oral mucosa moist. NECK: No JVD, no neck masses. CARDIOVASCULAR: S1 and S2 heard. Regular rate and rhythm. No murmur, no gallop. RESPIRATORY SYSTEM: Normal AP diameter. No accessory muscle use. No wheezing, no crackles. ABDOMEN: Soft, bowel sounds present, nontender, no distention. CENTRAL NERVOUS SYSTEM: Cranial nerves II through XII are grossly intact, nonfocal. EXTREMITIES: Mild pedal edema present, no erythema seen. LABORATORY DATA: WBC 7.6, hemoglobin 11.4, hematocrit 35.6, platelets 203. PT 11, INR 1. Sodium 137, potassium 4.4, chloride 103, CO2 of 26, BUN 20, creatinine 1.01, serum glucose 218, calcium 9, total bilirubin 0.4, AST 14, ALT 14, alkaline phosphatase 61. Troponin I high sensitivity 4.5. Lipase 19. SARS-CoV-2 positive. ELECTROCARDIOGRAM: Normal sinus rhythm at a rate of 81, incomplete right bundle-branch block, no significant change was found. ASSESSMENT AND PLAN: This 81-year-old male presents with a gastrointestinal bleed, also found to be COVID positive. 1. Gastrointestinal bleed, melena and also has some slight blood per rectum. The patient is taking ibuprofen for the last 1 week. The patient is already on diclofenac sodium for last 6 years. His hemoglobin is 11.4. Blood consent obtained. We will follow hemoglobin and hematocrit q.6 hours, starting on Protonix drip, gentle fluids, n.p.o. and consult Gastrointestinal, closely monitor in telemetry floor. 2. COVID .flu like symptoms mostly about a week. The patient says he is COVID vaccinated and boosted twice. We will follow chest x-ray. Currently, saturating okay on room air. COVID precautions. 3. Diabetes. Holding his home medications. Placing on Lantus insulin sliding scale. Follow blood sugars, follow HbA1c levels. 4. Hypertension. Holding lisinopril. Monitor the blood pressure. 5. Hyperlipidemia. Continue statin. 6. Gout. Continue allopurinol. 7. History of prostate cancer, under surveillance. 8. Deep venous thrombosis prophylaxis. Sequential compression devices. DISPOSITION: Closely monitor in tele floor. Level 1, full code. Expect to discharge home and follow with family doctor. Job ID: [id number] [facility]
[2022-03-10 13:05] LABS: Hematocrit (blood only) 29.6 % (42-52); Hemoglobin 9.7 g/dL (14.0-18.0)
--- NOTE | 2022-03-10 14:59 | Gastrointestinal Consultation ---
Date of Consultation March 10, 2022 Assessment & Plan (1) COVID-19: (2) Melena: (3) Acute blood loss anemia: Recommend conservative care Continue Protonix gtt at 8 mg/hour If patient continues to have declining H/H or overt GI bleeding consider EGD at that time, however, due to active COVID infection and hemodynamic stability, I would hold off on this at present Continue supportive care History of Present Illness Reason for Consultation: Melena, Blood per rectum Attending Physician: Swati Bryant MD History of Present Illness Cale Jean Baptiste is an 81 yo CM with an extensive PMHx who presented to the ER with melena and bright red blood per rectum. He states that for the past 2 days he was having dark stools. He did note that his and he had not been feeling well, and that they both had fevers. He states he was taking some Ibuprofen to control his fever, but that his COVID test earlier this week was negative. In addition to the Ibuprofen, he states that he has been using oral diclofenac as well. Upon arrival to the ER his Hgb was noted to be 11.4. A repeat COVID test returned positive, and he was noted to have a fever in the ER as well as non-productive cough. He was felt to be without respiratory compromise and he was subsequently admitted. Of note, he has received his COVID vaccination series, as well as 2 booster doses. He was started on a Protonix gtt and a repeat H/H this AM was decreased to 9.7/29.6. At the time I saw him, nursing reports that he had 2 BM's without significant melena. He denies any abdominal pain, SOB, hematemesis, or hematochezia. He does complain of intermittent fever, cough and rhinnorhea. He denies any further complaints. 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) Home Medications Medication Instructions Recorded Confirmed Type allopurinol 300 mg tablet 300 mg PO QAM 09/19/20 03/10/22 History cholecalciferol (vitamin D3) 50 2,000 mcg PO QAM 09/19/20 03/10/22 History mcg (2,000 unit) tablet diclofenac sodium 75 mg 75 mg PO BID 09/19/20 03/10/22 History tablet,delayed release diclofenac sodium 1 % topical gel 2 g TOPICAL BID 06/14/21 03/10/22 History lisinopril 2.5 mg tablet 2.5 mg PO QAM 06/14/21 03/10/22 History pioglitazone 45 mg tablet 45 mg PO QAM 06/14/21 03/10/22 History glipizide 5 mg tablet 5 mg PO QAM 09/07/21 03/10/22 History sitagliptin 50 mg-metformin 1,000 1 tab PO BID 11/07/21 03/10/22 History mg tablet (Janumet) tadalafil 10 mg tablet 10 mg PO DAILY PRN #20 tab 02/25/22 03/10/22 Rx cyanocobalamin (vitamin B-12) 500 500 mcg PO DAILY 03/10/22 03/10/22 History mcg tablet (Vitamin B-12) fiber 2 tab PO BID 03/10/22 03/10/22 History loratadine 10 mg tablet 10 mg PO DAILY 03/10/22 03/10/22 History rosuvastatin 20 mg tablet 20 mg PO 3XWK 03/10/22 03/10/22 History Patient History Medical History Arthritis Cancer Urethral (several years ago) Diabetes Hyperlipidemia Prostate cancer Under surveillance (Dr. Christian) Surgical History History of colonoscopy History of esophagogastroduodenoscopy (EGD) History of eye surgery R/L cataracts History of left hip replacement Left RYAN (05/07/16): SAB x1 attempt at [facility] History of open reduction and internal fixation (ORIF) procedure LLE (1975) History of prostate surgery Biopsy Hx of appendectomy Hx of tonsillectomy Family History Father Diabetes Renal failure Social History Smoking Status: Former smoker Second Hand Exposure: Yes (FATHER SMOKED); Hx Alcohol Use: Yes Alcohol type: beer Hx Substance Use: No Preferred Language: Maori Communication Ability: Effective Drum Handler Required: No Beliefs That Will Affect Care: None marital status: Current Living Situation: Spouse Feels Safe at Home: Yes Safety Concerns: Feels Safe At This Time Assistive Devices: None Review of Systems Constitutional: as per Subjective / HPI Eyes: as per Subjective / HPI Ear, Nose, Mouth, Throat: as per Subjective / HPI Respiratory: as per Subjective / HPI Cardiovascular: as per Subjective / HPI Gastrointestinal: as per Subjective / HPI Musculoskeletal: as per Subjective / HPI Integumentary: as per Subjective / HPI Neurologic: as per Subjective / HPI Psychiatric: as per Subjective / HPI Endocrine: as per Subjective / HPI Hematologic / Lymphatic: as per Subjective / HPI Allergy / Immunological: as per Subjective / HPI Physical Exam Constitutional: WD/WN, vitals as above Eyes: + anicteric sclerae Neck: normal visual inspection Respiratory: normal respiratory effort, lungs clear to auscultation Cardiovascular: RRR, no murmur, no edema Gastrointestinal (Abdomen): normal bowel sounds, soft, nontender, no hepatosplenomegaly Skin: no rashes, warm and dry Psychiatric: A+Ox3, euthymic affect Results & Data ([facility]) Vital Signs (Past 12 Hours) Vital Signs Temp Pulse Pulse Resp BP BP BP 03/10/22 12:18 36.9 C 86 16 123/70 03/10/22 08:03 36.9 C 86 20 119/68 03/10/22 06:50 36.8 C 87 18 106/70 03/10/22 05:01 90 19 110/59 L 03/10/22 04:30 91 H 18 118/60 03/10/22 04:05 90 18 127/67 03/10/22 04:00 92 H 21 03/10/22 03:50 99 H 21 03/10/22 03:41 92 H 18 129/60 03/10/22 03:40 86 20 129/60 03/10/22 03:30 86 24 03/10/22 03:20 85 22 03/10/22 03:17 37.6 C H 86 21 130/53 L 03/10/22 03:10 83 17 03/10/22 03:05 82 18 123/74 03/10/22 03:00 80 14 122/55 L Pulse Ox 03/10/22 12:18 96 03/10/22 08:03 95 03/10/22 06:50 94 03/10/22 05:01 96 03/10/22 04:30 95 03/10/22 04:05 94 03/10/22 04:00 96 03/10/22 03:50 93 03/10/22 03:41 97 03/10/22 03:40 90 03/10/22 03:30 90 03/10/22 03:20 03/10/22 03:17 95 03/10/22 03:10 93 03/10/22 03:05 03/10/22 03:00 97 PG Care Time/CCT Total # of Minutes Spent Total Time Spent with Patient: Total time spent is greater than 50% in coordination of care (as documented) at patient's floor/unit and/or counseling patient: Coding Level of Care Code 31083 Initial Inpt Care Lvl 3 Diagnoses COVID-19 U07.1 Melena K92.1 Acute blood loss anemia D62
[2022-03-10] MEDS: ROSUVASTATIN CALCIUM 20 MG TAB PO SCH ×2 (16:00→18:39)
[2022-03-10 19:34] LABS: Hematocrit (blood only) 25.4 % (42-52); Hemoglobin 8.3 g/dL (14.0-18.0)
[2022-03-11] MEDS: PANTOprazole 40 MG in DEXTROSE 5% 100 ML IV SCH ×5 (02:44→23:48)
[2022-03-11] MEDS: SODIUM CHLORIDE 0.9% 1000ML 1,000 ML IV SCH ×2 (05:20→17:01)
[2022-03-11 06:33] LABS: Anion Gap 6 (3-11); BUN Creatinine Ratio 15.2 (10-20); Blood Urea Nitrogen 14 mg/dl (6-23); Calcium 7.9 mg/dl (8.5-10.1); Carbon Dioxide 23 mmol/L (21-32); Chloride 109 mmol/L (98-107); Creatinine Clr Calc Pharmacy 76.4 ml/min; Est GFR (African American) 90.7 ml/min; Est GFR (Non-African American) 78.3 ml/min; Glucose 179 mg/dl (70-99(Fasting)); Magnesium 1.7 mg/dl (1.7-2.4); Phosphorus 2.8 mg/dl (2.5-4.9); Sodium 138 mmol/L (136-145)
--- NOTE | 2022-03-11 06:54 | Electrocardiogram Report ---
Test Reason : Blood Pressure : / mmHG Vent. Rate : 081 BPM Atrial Rate : 081 BPM P-R Int : 198 ms QRS Dur : 092 ms QT Int : 342 ms P-R-T Axes : 029 -12 059 degrees QTc Int : 397 ms Normal sinus rhythm Incomplete right bundle branch block Nonspecific T wave abnormality Abnormal ECG When compared with ECG of 15-JUN-2021 09:31, No significant change was found Confirmed by Vicente Cervantes ([id number]) on 03/11/2022 6:53:35 AM Referred By: REFERRED SELF Confirmed By:Vicente Cervantes
[2022-03-11 08:04] LABS: Basophils # (auto) 0.01 K/uL (0-0.2); Basophils % (auto) 0.2 %; Eosinophils # (auto) 0.05 K/uL (0-0.5); Eosinophils % (auto) 1.1 %; Hematocrit (blood only) 24.3 % (42-52); Hemoglobin 7.8 g/dL (14.0-18.0); Immature Granulocytes # (auto) 0.04 K/uL (0.00-0.02); Immature Granulocytes % (auto) 0.9 %; Lymphocytes # (auto) 0.91 K/uL (1.2-3.4); Mean Corpuscular Hemoglobin 31.6 pg (25-34); Mean Corpuscular Volume 98.4 fL (80-100); Mean Platelet Volume 10.5 fL (7.4-10.4); Monocytes # (auto) 0.66 K/uL (0.11-0.59); Monocytes % (auto) 14.5 %; Neutrophils # (auto) 2.88 K/uL (1.4-6.5); Neutrophils % (auto) 63.3 %; Platelet Count 161 K/uL (130-400); RDW Coefficient of Variation 14.3 % (11.5-14.5); Red Blood Count 2.47 M/uL (4.7-6.1); White Blood Count 4.55 K/uL (4.8-10.8)
[2022-03-11 08:13] LABS: Mean Corpuscular Hgb Conc 32.1 g/dL (32-36)
[2022-03-11] MEDS: INSULIN ASPART PER UNIT SC SCH ×4 (08:20→20:48)
[2022-03-11] MEDS: INSULIN GLARGINE SOLOSTAR 100 UNITS/ML 3 ML PEN SC SCH (08:28)
[2022-03-11] MEDS: CHOLECALCIFEROL 1,000 UNITS 25 MCG TAB PO SCH (08:29)
[2022-03-11] MEDS: CYANOCOBALAMIN (B-12) 500 MCG TABLET PO SCH (08:29)
[2022-03-11] MEDS: ROSUVASTATIN CALCIUM 20 MG TAB PO SCH (08:29)
[2022-03-11] MEDS: LORATADINE 10 MG TAB PO SCH ×2 (08:29→14:23)
[2022-03-11] MEDS: allopurinoL 300 MG TAB PO SCH (08:29)
[2022-03-11 08:36] LABS: RBC Morphology Unremarkable
[2022-03-11 08:48] LABS: Estimated Average Glucose 157 mg/dl; Hemoglobin A1C 7.1 % (4.5-5.6)
--- NOTE | 2022-03-11 09:34 | Communication Note ---
Date of Service: March 11, 2022 Chart reviewed. Presented over the weekend with report of dark stools, melena. Found to be COVID positive. HGB on admission was 11.4 drifted down to 8.3 yeste rday. This AM HGB 7.8. BUN 14. Not elevated on admission. Chart review indicated last BM was yesterday, there is documentation of blood in the stool. He has remained hemodynamically stable. No fever or fevers. Would continue the established conservative care. Continue Protonix drip for 72 hours then transition to PO PPI 40 mg twice daily. No NSAIDs. If patient continues to have declining H/H or overt GI bleeding consider EGD at that time, however, due to active COVID infection and hemodynamic stability, I would hold off on this at present. Will plan for OP EGD within the next few weeks. Will sign off. Recall as needed.
--- NOTE | 2022-03-11 17:32 | Hospitalist Progress Note ---
Date of Service March 11, 2022 Assessment & Plan (1) Acute upper GI bleed: Plan: Has been on diclofenac 75 mg twice daily chronically for osteoarthritis Recently has been taking ibuprofen for additional pain and fever control Noted to have black stool since Friday and has had episode of near unresponsiveness by the EMS at home Hemoglobin on admission 9.4 and has dropped to 7.8 as of today Has been on Protonix drip Appreciate GI input and recommendation for outpatient EGD as long as hemodynamically stable Will advised not to use any more NSAID's (2) Acute blood loss anemia: Plan: We will monitor CBC Transfuse as needed (3) Melena: Plan: Presented with melena Has had minimal rectal bleed on wiping (4) COVID-19: Plan: He is fully vaccinated COVID was positive on admission Will repeat test for confirmation (5) Arthritis of carpometacarpal (CMC) joint of both thumbs: Plan: Has significant carpometacarpal joint arthritis Has been using local diclofenac cream Will advise no NSAID's (6) Hypertension: Plan: Seems to be reasonably controlled and will continue current medications (7) Hyperlipidemia: Plan: Continue statin DVT prophylaxis SCDs-no pharmacologic anticoagulation due to GI bleed Admission and Anticipated Discharge Date Admission Date: March 10, 2022 Subjective 03/11/2022 The patient was seen and examined in telemetry unit and in the COVID room He has been complaining of dark stool since Friday evening and he was noted to be almost unresponsive by the EMS He has been using diclofenac sodium 75 twice daily and on top of that ibuprofen recently to control pain and fever Has been feeling much better today Incidentally noted to be positive for COVID on admission Review of Systems Review of Systems: All systems reviewed and are unremarkable except as noted below Physical Exam Physical Exam: Lying in bed comfortably Constitutional: well developed, well nourished and + obese; not ill appearing Eyes: PERRL, conjunctivae normal, anicteric sclerae ENMT: external ear and nose normal, oropharynx normal Neck: trachea midline, no thyromegaly Respiratory: no respiratory distress Auscultation: lungs clear to auscultation bilaterally; no crackles Cardiovascular: Rate/Rhythm: regular rate and regular rhythm; not tachycardic Heart Sounds: normal S1 and normal S2; no murmur Extremities: no edema Gastrointestinal (Abdomen): Inspection/Auscultation: normal bowel sounds; abdomen not distended Percussion/Palpation: + abdomen tender (Mildly tender lower quadrant) and abdomen soft Musculoskeletal: No acute arthritis involving any joint Neurologic: Alert, awake and oriented x3. No focal sensory or no motor deficit appreciated Psychiatric: A+Ox3, euthymic affect Lymphatic: no cervical or axillary lymphadenopathy Results & Data Results & Data ([facility]) Vital Signs (Past 12 Hours) Vital Signs Temp Pulse Pulse Resp BP Pulse Ox 03/11/22 16:02 78 03/11/22 16:00 37.0 C 62 18 122/68 98 03/11/22 12:00 36.7 C 87 20 124/70 97 03/11/22 07:44 36.5 C 88 20 119/63 97 03/11/22 07:30 76 Laboratory Results Short CBC 03/10/22 03/11/22 03/11/22 Range/Units 19:28 05:28 06:55 WBC Cancelled 4.55 L Hgb 8.3 L Cancelled 7.8 L (14.0-18.0) g/dL Hct 25.4 L Cancelled 24.3 L (42-52) % Plt Count Cancelled 161 BMP 03/11/22 03/11/22 05:28 06:53 Sodium 138 Potassium TNP 3.9 Chloride 109 H Carbon Dioxide 23 BUN 14 Creatinine 0.92 Glucose 179 H Calcium 7.9 L Medications Administered Current Inpatient Medications Acetaminophen (Acetaminophen 325 Mg Tab) 650 mg PO Q4H PRN PRN Reason: Pain or Fever Stop: 04/09/22 06:48 Allopurinol (Allopurinol 300 Mg Tab) 300 mg PO QAM [facility] Stop: 04/09/22 08:59 Last Admin: 03/11/22 08:29 Dose: 300 mg Documented by: Cyanocobalamin (Cyanocobalamin (B-12) 500 Mcg Tablet) 500 mcg PO DAILY [facility] Stop: 04/09/22 08:59 Last Admin: 03/11/22 08:29 Dose: 500 mcg Documented by: Pantoprazole Sodium 40 mg/ (Dextrose) 100 mls @ 20 mls/hr IV Q5H [facility] Stop: 04/09/22 04:59 Last Admin: 03/11/22 14:21 Dose: 8 mg/hr, 20 mls/hr Documented by: Sodium Chloride (Nss 1000ml) 1,000 mls @ 100 mls/hr IV .Q10H [facility] Stop: 04/09/22 06:48 Last Admin: 03/11/22 17:01 Dose: 100 mls/hr Documented by: Insulin Aspart (Insulin Aspart Per Unit) 0 units SC ACHS [facility] Stop: 04/09/22 07:29 Last Admin: 03/11/22 16:52 Dose: 4 units Documented by: Insulin Glargine (Insulin Glargine Solostar 100 Units/Ml 3 Ml Pen) 6 units SC DAILY [facility] Stop: 04/09/22 08:59 Last Admin: 03/11/22 08:28 Dose: 6 units Documented by: Loratadine (Loratadine 10 Mg Tab) 10 mg PO DAILY [facility] Stop: 04/09/22 08:59 Last Admin: 03/11/22 14:23 Dose: 10 mg Documented by: Nitroglycerin (Nitroglycerin Sl 0.4 Mg/Tab Tab) 0.4 mg SL UD PRN PRN Reason: Chest Pain Stop: 04/09/22 06:48 Ondansetron HCl (Ondansetron Inj 2 Mg/Ml 2 Ml Vial) 4 mg IV Q6H PRN PRN Reason: Nausea Stop: 04/09/22 06:48 Rosuvastatin Calcium (Rosuvastatin Calcium 20 Mg Tab) 20 mg PO MoWeFr@0900 [facility] Stop: 04/09/22 08:59 Last Admin: 03/11/22 08:29 Dose: 20 mg Documented by: Vitamin D (Cholecalciferol 1,000 Units 25 Mcg Tab) 2,000 units PO QAM [facility] Stop: 04/09/22 08:59 Last Admin: 03/11/22 08:29 Dose: 2,000 units Documented by:
[2022-03-11 19:41] LABS: Influenza A virus by PCR Negative (Neg); Influenza B virus by PCR Negative (Neg); RSV by PCR Negative (Neg)
[2022-03-11 20:10] LABS: SARS CoV2 RNA(COVID-19) InHosp POSITIVE (Negative)
[2022-03-12] MEDS: SODIUM CHLORIDE 0.9% 1000ML 1,000 ML IV SCH ×3 (02:03→20:39)
[2022-03-12] MEDS: PANTOprazole 40 MG in DEXTROSE 5% 100 ML IV SCH ×4 (04:28→20:40)
[2022-03-12] MEDS ORDERED: CARBOHYDRATES FOR HYPOGLYCEMIA PO PRN (04:30)
[2022-03-12] MEDS ORDERED: GLUCOSE 40% GEL 15 GM TUBE PO PRN (04:30)
[2022-03-12] MEDS ORDERED: GLUCAGON FOR INJ 1 MG VIAL IM PRN (04:30)
[2022-03-12] MEDS ORDERED: DEXTROSE 50% 50 ML SYRINGE IV PRN (04:30)
[2022-03-12] MEDS ORDERED: GLUCOSE 10 TABS/TUBE PO PRN (04:30)
[2022-03-12 06:37] LABS: BUN Creatinine Ratio 13.1 (10-20); Creatinine Clr Calc Pharmacy 83.3 ml/min; Est GFR (African American) 95.8 ml/min; Est GFR (Non-African American) 82.7 ml/min; Potassium 3.7 mmol/L (3.5-5.1)
[2022-03-12 07:22] LABS: Basophils # (auto) 0.01 K/uL (0-0.2); Basophils % (auto) 0.3 %; Eosinophils % (auto) 2.9 %; Hematocrit (blood only) 23.2 % (42-52); Hemoglobin 7.4 g/dL (14.0-18.0); Immature Granulocytes # (auto) 0.03 K/uL (0.00-0.02); Immature Granulocytes % (auto) 0.9 %; Lymphocytes # (auto) 0.98 K/uL (1.2-3.4); Lymphocytes % (auto) 28.2 %; Mean Corpuscular Hgb Conc 31.9 g/dL (32-36); Mean Corpuscular Volume 100.4 fL (80-100); Mean Platelet Volume 10.4 fL (7.4-10.4); Monocytes # (auto) 0.49 K/uL (0.11-0.59); Monocytes % (auto) 14.1 %; Neutrophils # (auto) 1.86 K/uL (1.4-6.5); Neutrophils % (auto) 53.6 %; Platelet Count 158 K/uL (130-400); RDW Coefficient of Variation 14.1 % (11.5-14.5); Red Blood Count 2.31 M/uL (4.7-6.1); White Blood Count 3.47 K/uL (4.8-10.8)
[2022-03-12] MEDS ORDERED: SODIUM CHLORIDE 0.9% 250 ML IV PRN (07:43)
[2022-03-12] MEDS: INSULIN ASPART PER UNIT SC SCH ×4 (07:50→21:03)
[2022-03-12 08:15] LABS: RBC Morphology Unremarkable
[2022-03-12] MEDS: CYANOCOBALAMIN (B-12) 500 MCG TABLET PO SCH (08:15)
[2022-03-12] MEDS: LORATADINE 10 MG TAB PO SCH (08:15)
[2022-03-12] MEDS: allopurinoL 300 MG TAB PO SCH (08:15)
[2022-03-12] MEDS: CHOLECALCIFEROL 1,000 UNITS 25 MCG TAB PO SCH (08:15)
[2022-03-12] MEDS: INSULIN GLARGINE SOLOSTAR 100 UNITS/ML 3 ML PEN SC SCH (08:15)
[2022-03-12 12:55] LABS: Hematocrit (blood only) 23.7 % (42-52); Hemoglobin 7.7 g/dL (14.0-18.0)
--- NOTE | 2022-03-12 15:38 | Hospitalist Progress Note ---
Date of Service March 12, 2022 Assessment & Plan (1) Acute upper GI bleed: Plan: Has been on diclofenac 75 mg twice daily chronically for osteoarthritis Recently has been taking ibuprofen for additional pain and fever control Noted to have black stool since Friday and has had episode of near unresponsiveness by the EMS at home Hemoglobin on admission 9.4 and has dropped to 7.8 as of today Has been on Protonix drip Appreciate GI input and recommendation for outpatient EGD as long as hemodynamically stable Will advised not to use any more NSAID's Hemoglobin remains stable at 7.7 We will continue Protonix drip for a total of 3 days and following that twice daily oral Protonix on discharge If hemoglobin remains stable will be discharged home tomorrow (2) Acute blood loss anemia: Plan: We will monitor CBC Transfuse as needed (3) Melena: Plan: Presented with melena Has had minimal rectal bleed on wiping Bowel has not moved since admission (4) COVID-19: Plan: He is fully vaccinated COVID was positive on admission Will repeat test for confirmation-repeat COVID-19 test came back positive The patient will need quarantine for 5 days since diagnosis and additional 5 days using a mask while he is out of house (5) Arthritis of carpometacarpal (CMC) joint of both thumbs: Plan: Has significant carpometacarpal joint arthritis Has been using local diclofenac cream Will advise no NSAID's Will give diclofenac gel (6) Hypertension: Plan: Seems to be reasonably controlled and will continue current medications (7) Hyperlipidemia: Plan: Continue statin DVT prophylaxis SCDs-no pharmacologic anticoagulation due to GI bleed Admission and Anticipated Discharge Date Admission Date: March 10, 2022 Subjective 03/11/2022 The patient was seen and examined in telemetry unit and in the COVID room He has been complaining of dark stool since Friday evening and he was noted to be almost unresponsive by the EMS He has been using diclofenac sodium 75 twice daily and on top of that ibuprofen recently to control pain and fever Has been feeling much better today Incidentally noted to be positive for COVID on admission 03/12/2022 The patient was seen and examined in telemetry unit and in the COVID room He denies any symptoms secondary to COVID-no cough, shortness of breath and no desaturation He did not have any bowel movement Hemoglobin remains just above 7 at 7.7 Review of Systems Review of Systems: All systems reviewed and are unremarkable except as noted below Physical Exam Physical Exam: Lying in bed comfortably Constitutional: well developed, well nourished and + obese; not ill appearing Eyes: PERRL, conjunctivae normal, anicteric sclerae ENMT: external ear and nose normal, oropharynx normal Neck: trachea midline, no thyromegaly Respiratory: no respiratory distress Auscultation: lungs clear to auscultation bilaterally; no crackles Cardiovascular: Rate/Rhythm: regular rate and regular rhythm; not tachycardic Heart Sounds: normal S1 and normal S2; no murmur Extremities: no edema Gastrointestinal (Abdomen): Inspection/Auscultation: normal bowel sounds; abdomen not distended Percussion/Palpation: + abdomen tender (Mildly tender lower quadrant) and abdomen soft Musculoskeletal: No acute arthritis in any joint Neurologic: Alert, awake and oriented x3. No focal sensory and motor deficit appreciated Psychiatric: A+Ox3, euthymic affect Lymphatic: no cervical or axillary lymphadenopathy Results & Data Results & Data ([facility]) Vital Signs (Past 12 Hours) Vital Signs Temp Pulse Pulse Resp BP BP Pulse Ox 03/12/22 15:09 37.1 C 79 18 124/66 96 03/12/22 11:23 37.1 C 83 18 132/69 95 03/12/22 07:14 37.1 C 82 18 163/75 H 97 03/12/22 07:06 74 03/12/22 04:10 36.8 C 84 20 144/78 H 95 Laboratory Results Short CBC 03/12/22 03/12/22 Range/Units 05:26 12:31 WBC 3.47 L (4.8-10.8) K/uL Hgb 7.4 L 7.7 L (14.0-18.0) g/dL Hct 23.2 L 23.7 L (42-52) % Plt Count 158 (130-400) K/uL BMP 03/12/22 05:26 Sodium 139 Potassium 3.7 Chloride 108 H Carbon Dioxide 26 BUN 11 Creatinine 0.84 Glucose 165 H Calcium 8.0 L Medications Administered Current Inpatient Medications Acetaminophen (Acetaminophen 325 Mg Tab) 650 mg PO Q4H PRN PRN Reason: Pain or Fever Stop: 04/09/22 06:48 Allopurinol (Allopurinol 300 Mg Tab) 300 mg PO QAM [facility] Stop: 04/09/22 08:59 Last Admin: 03/12/22 08:15 Dose: 300 mg Documented by: Cyanocobalamin (Cyanocobalamin (B-12) 500 Mcg Tablet) 500 mcg PO DAILY [facility] ROSA Stop: 04/09/22 08:59 Last Admin: 03/12/22 08:15 Dose: 500 mcg Documented by: Dextrose (Dextrose 50% 50 Ml Syringe) 25 - 50 ml IV UD PRN; Protocol PRN Reason: Hypoglycemia Protocol Stop: 04/11/22 04:29 Glucagon (Glucagon For Inj 1 Mg Vial) 1 mg IM UD PRN; Protocol PRN Reason: Hypoglycemia Protocol Stop: 04/11/22 04:29 Glucose (Glucose 40% Gel 15 Gm Tube) 15 - 30 gm PO UD PRN; Protocol PRN Reason: Hypoglycemia Protocol Stop: 04/11/22 04:29 Glucose (Glucose 10 Tabs/Tube) 4 - 8 tabs PO UD PRN; Protocol PRN Reason: Hypoglycemia Protocol Stop: 04/11/22 04:29 Pantoprazole Sodium 40 mg/ (Dextrose) 100 mls @ 20 mls/hr IV Q5H [facility] Stop: 04/09/22 04:59 Last Admin: 03/12/22 15:28 Dose: 8 mg/hr, 20 mls/hr Documented by: Sodium Chloride (Nss 1000ml) 1,000 mls @ 100 mls/hr IV .Q10H [facility] Stop: 04/09/22 06:48 Last Admin: 03/12/22 10:31 Dose: 100 mls/hr Documented by: Sodium Chloride (Nss) 250 mls @ 15 mls/hr IV .[id number] PRN PRN Reason: For Transfusion Stop: 03/12/22 17:43 Insulin Aspart (Insulin Aspart Per Unit) 0 units SC ACHS [facility] Stop: 04/09/22 07:29 Last Admin: 03/12/22 11:52 Dose: 7 units Documented by: Insulin Glargine (Insulin Glargine Solostar 100 Units/Ml 3 Ml Pen) 6 units SC DAILY [facility] Stop: 04/09/22 08:59 Last Admin: 03/12/22 08:15 Dose: 6 units Documented by: Loratadine (Loratadine 10 Mg Tab) 10 mg PO DAILY [facility] Stop: 04/09/22 08:59 Last Admin: 03/12/22 08:15 Dose: 10 mg Documented by: Miscellaneous (Carbohydrates For Hypoglycemia ) 15 - 30 gm PO UD PRN PRN Reason: Hypoglycemia Treatment Stop: 04/11/22 04:29 Nitroglycerin (Nitroglycerin Sl 0.4 Mg/Tab Tab) 0.4 mg SL UD PRN PRN Reason: Chest Pain Stop: 04/09/22 06:48 Ondansetron HCl (Ondansetron Inj 2 Mg/Ml 2 Ml Vial) 4 mg IV Q6H PRN PRN Reason: Nausea Stop: 04/09/22 06:48 Rosuvastatin Calcium (Rosuvastatin Calcium 20 Mg Tab) 20 mg PO MoWeFr@0900 [facility] Stop: 04/09/22 08:59 Last Admin: 03/11/22 08:29 Dose: 20 mg Documented by: Vitamin D (Cholecalciferol 1,000 Units 25 Mcg Tab) 2,000 units PO QAM [facility] Stop: 04/09/22 08:59 Last Admin: 03/12/22 08:15 Dose: 2,000 units Documented by:
[2022-03-12] MEDS: DICLOFENAC SOD 1% GEL 100 GM TUBE EXT SCH (21:04)
[2022-03-13] MEDS: PANTOprazole 40 MG in DEXTROSE 5% 100 ML IV SCH ×3 (00:57→11:56)
[2022-03-13] MEDS: SODIUM CHLORIDE 0.9% 1000ML 1,000 ML IV SCH (06:09)
[2022-03-13 07:20] LABS: Basophils # (auto) 0.01 K/uL (0-0.2); Basophils % (auto) 0.3 %; Eosinophils # (auto) 0.11 K/uL (0-0.5); Eosinophils % (auto) 2.8 %; Hematocrit (blood only) 22.4 % (42-52); Hemoglobin 7.3 g/dL (14.0-18.0); Immature Granulocytes # (auto) 0.02 K/uL (0.00-0.02); Immature Granulocytes % (auto) 0.5 %; Lymphocytes # (auto) 1.09 K/uL (1.2-3.4); Lymphocytes % (auto) 27.5 %; Mean Corpuscular Hemoglobin 31.9 pg (25-34); Mean Corpuscular Hgb Conc 32.6 g/dL (32-36); Mean Corpuscular Volume 97.8 fL (80-100); Monocytes # (auto) 0.52 K/uL (0.11-0.59); Monocytes % (auto) 13.1 %; Neutrophils # (auto) 2.22 K/uL (1.4-6.5); Neutrophils % (auto) 55.8 %; Platelet Count 175 K/uL (130-400); RDW Coefficient of Variation 14.1 % (11.5-14.5); RDW Standard Deviation 50.1 fL (36.4-46.3); Red Blood Count 2.29 M/uL (4.7-6.1); White Blood Count 3.97 K/uL (4.8-10.8)
[2022-03-13 07:44] LABS: BUN Creatinine Ratio 14.1 (10-20); Calcium 8.3 mg/dl (8.5-10.1); Creatinine Clr Calc Pharmacy 76.1 ml/min; Est GFR (African American) 90.7 ml/min; Est GFR (Non-African American) 78.3 ml/min; Potassium 3.8 mmol/L (3.5-5.1)
[2022-03-13 07:50] LABS: RBC Morphology Unremarkable
[2022-03-13] MEDS: INSULIN ASPART PER UNIT SC SCH ×2 (08:01→11:50)
[2022-03-13] MEDS: INSULIN GLARGINE SOLOSTAR 100 UNITS/ML 3 ML PEN SC SCH (08:02)
[2022-03-13] MEDS: DICLOFENAC SOD 1% GEL 100 GM TUBE EXT SCH (08:14)
[2022-03-13] MEDS: CYANOCOBALAMIN (B-12) 500 MCG TABLET PO SCH (08:16)
[2022-03-13] MEDS: allopurinoL 300 MG TAB PO SCH (08:16)
[2022-03-13] MEDS: LORATADINE 10 MG TAB PO SCH (08:16)
[2022-03-13] MEDS: ROSUVASTATIN CALCIUM 20 MG TAB PO SCH (08:16)
[2022-03-13] MEDS: CHOLECALCIFEROL 1,000 UNITS 25 MCG TAB PO SCH (08:16)
[2022-03-13 12:16] LABS: Hematocrit (blood only) 22.1 % (42-52); Hemoglobin 7.2 g/dL (14.0-18.0)
--- NOTE | 2022-03-13 13:53 | Hospitalist Progress Note ---
Date of Service March 13, 2022 Assessment & Plan (1) Acute upper GI bleed: Plan: Has been on diclofenac 75 mg twice daily chronically for osteoarthritis Recently has been taking ibuprofen for additional pain and fever control Noted to have black stool since Friday and has had episode of near unresponsiveness by the EMS at home Hemoglobin on admission 9.4 and has dropped to 7.8 as of today Has been on Protonix drip Appreciate GI input and recommendation for outpatient EGD as long as hemodynamically stable Will advised not to use any more NSAID's Hemoglobin remains stable at 7.7 We will continue Protonix drip for a total of 3 days and following that twice daily oral Protonix on discharge If hemoglobin remains stable will be discharged home tomorrow Hemoglobin remained stable at 7.2-7.4 No more melena-received a total of 10 L of fluid while in the hospital part of the low hemoglobin is dilutional Will be discharged home this afternoon (2) Acute blood loss anemia: Plan: We will monitor CBC Transfuse as needed Will have EGD as an outpatient (3) Melena: Plan: Presented with melena Has had minimal rectal bleed on wiping Bowel has not moved since admission No more NSAID's (4) COVID-19: Plan: He is fully vaccinated COVID was positive on admission Will repeat test for confirmation-repeat COVID-19 test came back positive The patient will need quarantine for 5 days since diagnosis and additional 5 days using a mask while he is out of house COVID precautions as advised (5) Arthritis of carpometacarpal (CMC) joint of both thumbs: Plan: Has significant carpometacarpal joint arthritis Has been using local diclofenac cream Will advise no NSAID's Will give diclofenac gel (6) Hypertension: Plan: Seems to be reasonably controlled and will continue current medications (7) Hyperlipidemia: Plan: Continue statin DVT prophylaxis SCDs-no pharmacologic anticoagulation due to GI bleed Admission and Anticipated Discharge Date Admission Date: March 10, 2022 Subjective 03/11/2022 The patient was seen and examined in telemetry unit and in the COVID room He has been complaining of dark stool since Friday evening and he was noted to be almost unresponsive by the EMS He has been using diclofenac sodium 75 twice daily and on top of that ibuprofen recently to control pain and fever Has been feeling much better today Incidentally noted to be positive for COVID on admission 03/12/2022 The patient was seen and examined in telemetry unit and in the COVID room He denies any symptoms secondary to COVID-no cough, shortness of breath and no desaturation He did not have any bowel movement Hemoglobin remains just above 7 at 7.7 03/13/2022 The patient was seen and examined in telemetry unit and in the COVID room He denies any symptoms today and he is done with the intravenous Protonix Denies any cough and no shortness of breath No more black stool Review of Systems Review of Systems: All systems reviewed and are unremarkable except as noted below Physical Exam Physical Exam: Lying in bed comfortably Constitutional: well developed, well nourished and + obese; not ill appearing Eyes: PERRL, conjunctivae normal, anicteric sclerae ENMT: external ear and nose normal, oropharynx normal Neck: trachea midline, no thyromegaly Respiratory: no respiratory distress Auscultation: lungs clear to auscultation bilaterally; no crackles Cardiovascular: Rate/Rhythm: regular rate and regular rhythm; not tachycardic Heart Sounds: normal S1 and normal S2; no murmur Extremities: no edema Gastrointestinal (Abdomen): Inspection/Auscultation: normal bowel sounds; abdomen not distended Percussion/Palpation: + abdomen tender (Mildly tender lower quadrant) and abdomen soft Musculoskeletal: No acute arthritis in any joint Neurologic: patellar DTR's 2+ bilat, sensation intact Psychiatric: A+Ox3, euthymic affect Lymphatic: no cervical or axillary lymphadenopathy Results & Data Results & Data ([facility]) Vital Signs (Past 12 Hours) Vital Signs Temp Pulse Pulse Resp BP Pulse Ox 03/13/22 08:26 72 03/13/22 08:00 36.8 C 86 20 167/73 H 96 03/13/22 04:14 36.7 C 78 18 170/78 H 95 03/13/22 02:11 76 Laboratory Results Short CBC 03/13/22 03/13/22 Range/Units 06:27 11:42 WBC 3.97 L (4.8-10.8) K/uL Hgb 7.3 L 7.2 L (14.0-18.0) g/dL Hct 22.4 L 22.1 L (42-52) % Plt Count 175 (130-400) K/uL BMP 03/13/22 06:27 Sodium 138 Potassium 3.8 Chloride 106 Carbon Dioxide 26 BUN 13 Creatinine 0.92 Glucose 169 H Calcium 8.3 L
--- NOTE | 2022-03-14 07:52 | Discharge Summary ---
Date of Service March 14, 2022 Admission HPI Per Admitting Provider DICTATED BY:Kirk Santo MD DATE OF ADMISSION: 03/10/2022 CHIEF COMPLAINT: GI bleed. HISTORY OF PRESENT ILLNESS: An 81-year-old male with past medical history significant for type 2 diabetes, gout, hyperlipidemia, GERD, history of prostate cancer - under surveillance, history of hematuria in the past, comes with melena and some blood in the stools. The patient states he had a few episodes since the evening yesterday; as it is nonstopping, he came to the hospital. His hemoglobin is 11.4. The patient is also having fever and some cough that started this week. His also had similar symptoms and tested her for COVID on Friday, it was negative but his COVID came positive here. The patient says he is COVID vaccinated and boosted twice. Has mild temperature here, saturating okay. Denies any shortness of breath, no chest pain, no headache, no blurred visions, no earache. Has some mild runny nose. Sounds raspy, but no sore throat. Appetite is okay. No difficulty swallowing. No abdominal pain. Currently no hematuria. Never had GI bleeds in the past. The patient is on diclofenac sodium for the last 6 years. For last one week, he is using Tylenol and ibuprofen for his fever and flu-like symptoms. Admission Exam Per Admitting Provider GENERAL: The patient is of moderate build, not in acute distress. VITAL SIGNS: Temperature 37.6, pulse 90, respiratory rate 18, blood pressure 127/67, oxygen 94% on room air. HEENT: Pupils equal, round and reactive to light. Oral mucosa moist. NECK: No JVD, no neck masses. CARDIOVASCULAR: S1 and S2 heard. Regular rate and rhythm. No murmur, no gallop. RESPIRATORY SYSTEM: Normal AP diameter. No accessory muscle use. No wheezing, no crackles. ABDOMEN: Soft, bowel sounds present, nontender, no distention. CENTRAL NERVOUS SYSTEM: Cranial nerves II through XII are grossly intact, nonfocal. EXTREMITIES: Mild pedal edema present, no erythema seen. Principal Diagnosis Acute upper GI bleed, NSAID's induced, positive COVID-19 virus infection osteoarthritis , hypertension Discharge Exam Lying in bed comfortably Constitutional well developed, well nourished and + obese; not ill appearing Eyes PERRL, conjunctivae normal, anicteric sclerae ENMT external ear and nose normal, oropharynx normal Neck trachea midline, no thyromegaly Respiratory no respiratory distress Auscultation: lungs clear to auscultation bilaterally; no crackles Cardiovascular Rate/Rhythm: regular rate and regular rhythm; not tachycardic Heart Sounds: normal S1 and normal S2; no murmur Extremities: no edema Gastrointestinal (Abdomen) Inspection/Auscultation: normal bowel sounds; abdomen not distended Percussion/Palpation: + abdomen tender (Mildly tender lower quadrant) and abdomen soft Neurologic patellar DTR's 2+ bilat, sensation intact Psychiatric A+Ox3, euthymic affect Lymphatic no cervical or axillary lymphadenopathy Discharge Data Allergies Allergy/AdvReac Type Severity Reaction Status Date / Time iodine Allergy Severe Anaphylaxis Verified 03/10/22 01:06 shellfish derived Allergy Severe Anaphylaxis Verified 03/10/22 01:06 prednisone AdvReac Mild Elevates Verified 03/10/22 01:06 blood sugar Insulins AdvReac Unknown Pt does Verified 03/10/22 01:06 not want (would revoke [employer] license) Consultations 03/10/22 02:51 ED Decision to Admit Stat 03/10/22 08:00 Consult Gastroenterology Routine Hospital Course (1) Acute upper GI bleed: Has been on diclofenac 75 mg twice daily chronically for osteoarthritis Recently has been taking ibuprofen for additional pain and fever control Noted to have black stool since Friday and has had episode of near unresponsiveness by the EMS at home Hemoglobin on admission 9.4 and has dropped to 7.8 as of today Has been on Protonix drip Appreciate GI input and recommendation for outpatient EGD as long as hemodynamically stable Will advised not to use any more NSAID's Hemoglobin remains stable at 7.7 We will continue Protonix drip for a total of 3 days and following that twice daily oral Protonix on discharge If hemoglobin remains stable will be discharged home tomorrow Hemoglobin remained stable at 7.2-7.4 No more melena-received a total of 10 L of fluid while in the hospital part of the low hemoglobin is dilutional Will be discharged home this afternoon (2) Acute blood loss anemia: We will monitor CBC Transfuse as needed Will have EGD as an outpatient (3) Melena: Presented with melena Has had minimal rectal bleed on wiping Bowel has not moved since admission No more NSAID's (4) COVID-19: He is fully vaccinated COVID was positive on admission Will repeat test for confirmation-repeat COVID-19 test came back positive The patient will need quarantine for 5 days since diagnosis and additional 5 days using a mask while he is out of house COVID precautions as advised (5) Arthritis of carpometacarpal (CMC) joint of both thumbs: Has significant carpometacarpal joint arthritis Has been using local diclofenac cream Will advise no NSAID's Will give diclofenac gel (6) Hypertension: Seems to be reasonably controlled and will continue current medications (7) Hyperlipidemia: Continue statin DVT prophylaxis SCDs-no pharmacologic anticoagulation due to GI bleed Total Time Total Time Spent Total Time Spent (In Minutes): 35 minutes Discharge Plan Discharge Items Patient Disposition: Home - Self-Care Reason For Visit: GI BLEED Discharge Diagnosis: Acute upper GI bleed, NSAID's induced, positive COVID-19 virus infection osteoarthritis , hypertension Condition on Discharge: Fair Activity: Resume your previous activity Non-emergency contact: Primary Care Provider Call non-emergency contact if: you have any medication questions Follow-up/Referrals: [facility] [Other] (The GI office will call you to set up an appointment for an EGD. ) Lilly Bonds [Primary Care Provider] - 03/18/22 5:00 pm (Dr Bonds will call you at home on Sunday 03/18 around 5PM. ) Diet: Carb Consistent or DM2 Addtl Attending Provider Instructions: Please take precautions to avoid fall At home isolation for next day and use mask for the next 5 days thereafter for COVID-19 infection Do not take any more NSAID's like ibuprofen, Advil or Motrin. Use Tylenol for pain control and you can use local Voltaren as well Please keep appointments with your healthcare providers Pending Studies at Discharge: No Stand-Alone Forms: My [employer] Smoking Cessation Medications and DC Order Prescriptions: New pantoprazole [Protonix] 40 mg tablet,delayed release (DR/EC) 40 mg PO BID 30 Days Qty: 60 RF: 0 Continued tadalafil 10 mg tablet 10 mg PO DAILY PRN (Reason: sexual activity) Qty: 20 RF: 1 Janumet 50-1,000 mg tablet 1 tab PO BID RF: 0 cholecalciferol (vitamin D3) 50 mcg (2,000 unit) tablet 2,000 mcg PO QAM RF: 0 allopurinol 300 mg tablet 300 mg PO QAM RF: 0 lisinopril 2.5 mg Tablet 2.5 mg PO QAM RF: 0 diclofenac sodium 1 % Gel 2 g TOPICAL BID RF: 0 pioglitazone 45 mg Tablet 45 mg PO QAM RF: 0 glipizide 5 mg Tablet 5 mg PO QAM RF: 0 rosuvastatin 20 mg Tablet 20 mg PO 3XWK RF: 0 loratadine 10 mg Tablet 10 mg PO DAILY RF: 0 cyanocobalamin (vitamin B-12) [Vitamin B-12] 500 mcg Tablet 500 mcg PO DAILY RF: 0 fiber Tablet 2 tab PO BID RF: 0 Discontinued diclofenac sodium 75 mg tablet,delayed release (DR/EC) 75 mg PO BID RF: 0 Discharge Orders: Discharge Order (Routine); Ordered 03/13/22 Ordered By: Swati Arevalo/Other Patient Handouts: Managing Type 2 Diabetes Admission Data Admit Date/Time: 03/10/22 04:04 Attending Provider: Swati Bryant Admit Provider: Kirk Santo Primary Care Provider: Lilly Bonds Other Providers: Kirk Santo ; Madelaine Maldonado ; Vera Nieto ; Marissa Post ; Diana Lua ; Matthew Adamson ; Jaqueline Bermudez ; Jermaine Jackson ; Hernan Pitt ; Celi Perez ; Mansi Guerrero ; Rosemarie Mckinley ; Manju Solares ; Josey Maxwell Other Interventions: Discharge Summary Assessment (RN) Last Done: 03/13/22 14:36
== END 2022-03-13 15:11 | disposition home or self-care (01) | DRG 377 ==
LOC: ED 00:57 → 2S 04:04
DX: K92.2 Gastrointestinal hemorrhage, unspecified; M10.9 Gout, unspecified; T39.395A Adverse effect of other nonsteroidal anti-inflammatory drugs [NSAID], initial encounter; Z88.8 Allergy status to other drugs, medicaments and biological substances; Z85.46 Personal history of malignant neoplasm of prostate; Z90.49 Acquired absence of other specified parts of digestive tract; Z90.09 Acquired absence of other part of head and neck; E66.9 Obesity, unspecified; E78.5 Hyperlipidemia, unspecified; Z98.41 Cataract extraction status, right eye; Z98.42 Cataract extraction status, left eye; Z87.891 Personal history of nicotine dependence; D62 Acute posthemorrhagic anemia; Z91.013 Allergy to seafood; Z68.29 Body mass index [BMI] 29.0-29.9, adult; Z91.041 Radiographic dye allergy status; M18.0 Bilateral primary osteoarthritis of first carpometacarpal joints; Z96.642 Presence of left artificial hip joint; U07.1 COVID-19; E11.9 Type 2 diabetes mellitus without complications